=== PATIENT | female | born 1940 | race Caucasian/White ===

== ENCOUNTER 2017-01-15 21:48 | Inpatient (IN) | payer MEDICARE, OTHER ==
[~2017-01-15] VITALS: Ht 165.1 cm; Wt 101.1 kg
[~2017-01-15 21:48] MED LIST: ALBU90AE IH; ASPI-973 PO; CALC-72 PO; CHOL400T PO; FLAX1CAP4 PO; GUAI400T57 PO; IPRA3AMP IH; LORA10CA PO; MULT1CAP33 PO; OXYC5TAB72 PO; POLY17PO6 PO; TELM20TA PO
[2017-01-15 22:18] VITALS: BP 157/82; PULSE 96; RESP 24; O2SAT 93
--- NOTE | 2017-01-15 22:58 | ED.REPORT ---
HPI-Abd Pain F 40 and Over Date of Service Jan 15, 2017 ED Provider: Alfred Canales MD Patient is a 76 year old female with a history of COPD, WPW syndrome, hypertension, hernia, cholecystectomy and hemorrhoid presenting to the ED c/o abdominal pain onset 5 hours ago. She describes a sensation of gas in her lower abdomen and feels bloated. This is accompanied by nausea but she denies vomiting , diarrhea or dysuria. She is having normal bowel movements and used Mylanta without relief. The patient denies history of appendectomy. Nursing Notes Stated Complaint: STOMACH PAIN Chief Complaint: Female Abdominal Pain Nursing Notes Reviewed: Yes Allergies: Coded Allergies: diazepam (Verified Adverse Reaction, Severe, 01/16/17) "It reversed on me. Instead of making me calm, it made me hyper." amoxicillin (Verified Adverse Reaction, Intermediate, 01/16/17) "It was like I had the flu." clavulanic acid (Verified Adverse Reaction, Intermediate, 01/16/17) "It was like I had the flu. I had once, and they thought I had the flu. Then I took it again, and it happened again." Scheduled Aspirin (Aspirin) 81 Mg Tablet 81 MG PO At dinner Calcium Carbonate/Vitamin D3 (Calcium 500 + Vit D 200 Tablet) 1 Each Tablet 1 EACH PO BID Cholecalciferol (Vitamin D3) (Vitamin D3) 400 Unit Tablet 800 UNIT PO DAILY Guaifenesin (Guaifenesin) 400 Mg Tablet 400 MG PO BID Ipratropium/Albuterol Sulfate (Iprat-Albut 0.5-3(2.5) mg/3 mL Inhalant Soln) 3 Ml Ampul.neb 3 ML IH Q6 Loratadine (Claritin) 10 Mg Capsule 10 MG PO DAILY Multivitamin (Multivitamins) 1 Each Capsule 1 EACH PO DAILY Naproxen Sodium (Aleve) 220 Mg Capsule 220 MG PO BID Soy Isofla/Blk Cohosh/Mag Bark (Estroven 155 mg Capsule) 155 Mg Capsule 155 MG PO HS Telmisartan (Micardis) 20 Mg Tablet 20 MG PO DAILY Scheduled PRN Albuterol Sulfate (Proair Respiclick) 90 Mcg Aer.pow.ba 2 PUFFS IH q4 hours PRN PRN For Shortness of Breath Polyethylene Glycol 3350 (Miralax) 17 Gm Powd.pack 17 GM PO DAILY PRN PRN For Constipation General Time Seen by MD: 22:46 Chief Complaint Abdominal pain Hx Obtained From: Patient Arrived By: Walk-in Sudden in Onset?: No Onset Occurred: 5 - 8 hours ago Symptom Duration: Since onset Location: : Abdomen lower Recent Healthcare: No recent hospitalization, Recent doctor visit Similar Sx Previous: No Risk Factors )( AAA Risk Stratification Hypertension Risk factors reviewed Past Medical History Past Medical History Chronic Obstructive Pulmonary Disease Morena Parkinson White Syndrome Reports: COPD Past Surgical History Pilonidal Cyst Removal Reports: Cholecystectomy Smoking History Former Smoker Social History Other Social History: Good social support Ambulatory Status Independent Review of Systems bloating GI: Reports: Abdominal pain, Nausea, Denies: Constipation, Diarrhea, Vomiting Female: Denies: Dysuria Complete sys rev & neg: except as marked. Physical Exam Vital Signs Vital Signs (First) Date Time Temp Pulse Resp B/P Pulse Ox O2 Delivery O2 Flow Rate FiO2 01/15/17 22:18 37.1 96 24 157/82 93 Room Air Initial VS: Reviewed, Vital signs normal General/Constitutional: Awake, Alert Appearance / Presentation: Positive: Obese exam limited by obesity Respiratory / Chest: Atraumatic, Breath sounds NL, Breath sounds = bilat, No respiratory distress Cardiovascular: Heart rate NL, Regular rhythm, Heart sounds NL Abdomen: Atraumatic, Soft diffuse abdominal tenderness, not well localized palpable periumbilical hernia Back: Atraumatic, Full range of motion, No CVA tenderness Head / Eyes: Atraumatic, Normocephalic, PERRL, EOMI ENT: Atraumatic, Airway patent, Mucous membranes moist Skin: Atraumatic, Color NL, No rash, Warm, Dry Lower Extremity / Pelvis / MS: Atraumatic, Full range of motion, No edema Interpretation & Diagnostics Lab Results Interpretation Result Diagram: 01/15/17 2255 01/15/17 2255 Test 01/15/17 21:55 01/15/17 22:53 01/15/17 22:55 01/16/17 00:00 C-Reactive Protein 1.7mg/dL (0.0-0.5) Urine Color Yellow (YELLOW) Urine Appearance Hazy (CLEAR,HAZY) Urine pH 6.0 (5.0-8.0) Urine Specific [place] 1.025 (1.003-1.035) Urine Protein Negativemg/dL (NEG,TRACE) Urine Glucose (UA) Negativemg/dL (NEGATIVE) Urine Ketones 40mg/dL (NEGATIVE) Urine Occult Blood Moderate (NEGATIVE) Urine Nitrite Negative (NEGATIVE) Urine Bilirubin Negative (NEGATIVE) Urine Urobilinogen Normalmg/dL (NORMAL) Urine Leukocyte Esterase Trace (NEGATIVE) Urine RBC 3-10/hpf (0-2) Urine WBC 6-10/hpf (0-5) Urine Epithelial Cells Few/hpf (NONE-MOD) Urine Crystals None seen (NONE SEEN) Urine Bacteria Few/hpf (NONE-FEW) Urine Hyaline Casts None/lpf (NONE) Urine Granular Casts None seen (NONE SEEN) Urine Waxy Casts None seen (NONE SEEN) Urine Red Blood Cell Casts None seen (NONE SEEN) Urine White Blood Cell Casts None seen (NONE SEEN) Urine Mucus Present (None Seen) Urine Trichomonas None seen (NONE SEEN) Urine Yeast None (NONE SEEN) Urinalysis Comment None Urine Culture Reflexed Indicated Hold Urine Received (Received) White Blood Count 16.9th/mm3 (3.8-10.1) Red Blood Count 5.14mil/mm3 (3.90-5.20) Hemoglobin 14.4g/dL (12.0-15.6) Hematocrit 43.1% (35.0-46.0) Mean Corpuscular Volume 83.9fL (81-100) Mean Corpuscular Hemoglobin 28.0pg (27.0-35.0) Mean Corpuscular Hemoglobin Concent 33.4% (32.0-37.0) Red Cell Distribution Width 14.0% (12.3-15.4) Platelet Count 229bil/L (150-400) Neutrophils (%) (Auto) 87.1% (40-74) Lymphocytes (%) (Auto) 6.7% (14-46) Monocytes (%) (Auto) 5.3% (4-12) Eosinophils (%) (Auto) 0.5% (0-5) Basophils (%) (Auto) 0.2% (0-3) Hold Purple Top Tube Received (Received) Prothrombin Time 10.5sec (8.1-12.5) Prothromb Time International Ratio 0.98ratio Hold Blue Top Tube Received (Received) Sodium Level 135mEq/L (134-144) Potassium Level 4.1mEq/L (3.5-5.2) Chloride Level 96mEq/L (97-108) Carbon Dioxide Level 24mmol/L (18-29) Blood Urea Nitrogen 21mg/dL (8-27) Creatinine 0.77mg/dL (0.57-1.00) Estimat Glomerular Filtration Rate 104mL/min (>59) Glucose Level 157mg/dL (60-99) Calcium Level 9.5mg/dL (8.5-10.1) Magnesium Level 2.0mg/dL (1.6-2.6) Total Bilirubin 0.5mg/dL (0.0-1.2) Aspartate Amino Transf (AST/SGOT) 16U/L (0-50) Alanine Aminotransferase (ALT/SGPT) 12U/L (0-32) Alkaline Phosphatase 61U/L (25-165) Total Protein 7.5g/dL (6.4-8.4) Albumin 4.4g/dL (3.4-5.0) Lipase 17U/L (13-60) Hold Red Top Tube Received (Received) Hold Gallagher Top Tube Received (Received) Hold Arza Top Tube Received (Received) Lab Results Interpretation: Laboratory data white blood count, mildly elevated nonfasting glucose ECG Interpretation ECG Interpretation: Sinus rhythm with a rate of 91 Probable left atrial enlargement Low voltage, precordial leads Time: 23:34 Interpreted by: ED physician CT Abd / Pelvis Interpretation IMPRESSION: Acute non-perforated appendicitis Study type: Abdominal CT IV contrast Interpretation / Wet Read by: Interpret - Radiologist Re-Eval/Medical Decision Med Decision/Clinical Course 76-year-old female with some mild comorbidities (hypertension, obesity) has an acute appendicitis. She will be admitted to the hospitalist service with Win Gaffney, surgeon, consulting. Re-Evaluation/Progress #1: Time of Eval: 23:34 Re-Evaluation/Progress Note: Pt rechecked, who is resting. Lab results are discussed. Re-Evaluation/Progress #2: Time of Eval: 00:34 Re-Evaluation/Progress Note: Pt rechecked, who is resting comfortably. The diagnosis and plan for admission with surgery are discussed. The pt understands and agrees with the plan. All questions are addressed at this time. Consultation #1: Referral / Consult Name: Win Gaffney MD Consulted With: Surgeon Call Returned at: 00:42 Mechanic Foreman: Agrees with eval, Agrees with plan, Accepts admit Note: Spoke with Dr. Gaffney, surgeon, regarding pt's case. Dr. Gaffney agrees with the evaluation and agrees to admit the pt. He also requests a hospitalist consultation. Consultation #2: Referral / Consult Name: Shai Aburto MD Consulted With: Hospitalist Call Returned at: 00:51 Mechanic Foreman: Agrees with eval, Agrees with plan Note: Consulted with Dr. Aburto, hospitalist, regarding pt's case. Dr. Aburto agrees with the evaluation and plan. Counseled Regarding: Diagnosis, Lab results, Need for admission Discharge & Departure Primary Impression: Acute appendicitis Acute appendicitis type: unspecified acute appendicitis type Qualified Code: K35.80 - Unspecified acute appendicitis Disposition: ADMITTED TO HOSPITAL Discharge Condition All VS Reviewed: Yes Condition: Stable Referrals: Wilver Whelan MD (PCP) Scribe Attestation Portions of this note were transcribed by Hafsa Rodriguez & Radhika Keller. I, Dr. Canales personally performed the history, physical exam and medical decision-making; I reviewed and confirmed the accuracy of the information in the transcribed note. Signed by: Hafsa Rodriguez & Garo Sandoval, 01/16/2017 and 0111. copies to: Wilver Whelan MD, Howard L MD Jan 15, 2017 22:58 Hafsa Rodriguez Jan 15, 2017 23:07 RADHIKA KELLER Jan 16, 2017 00:55
[2017-01-15 23:03] LABS: BASOPHILS % (AUTO) 0.2 % (0-3); EOSINOPHILS % (AUTO) 0.5 % (0-5); MONOCYTES % (AUTO) 5.3 % (4-12); Mean Corpuscular Volume 83.9 fL (81-100); NEUTROPHILS % (AUTO) 87.1 % (40-74); Platelet Count 229 bil/L (150-400)
[2017-01-15] MEDS ORDERED: 0.9% Sodium Chloride 1,000 ML IV ONE (23:03)
[2017-01-15] MEDS ORDERED: Ondansetron 2 mg/mL 2 mL Inj IVPUSH PRN (23:05)
[2017-01-15 23:23] LABS: COLOR,URINE YELLOW (YELLOW)
[2017-01-15 23:24] LABS: APPEARANCE,URINE HAZY (CLEAR,HAZY); OCCULT BLOOD,URINE MODERATE (NEGATIVE); UROBILINOGEN,URINE NORMAL (NORMAL)
[2017-01-15] MEDS: HYDROmorphone 0.5 mg/0.5 mL iSecure Syringe IVPUSH PRN (23:25)
[2017-01-16] VITALS (20 sets, daily range): BP systolic 102–146; BP diastolic 57–81; PULSE 53–98; RESP 8–22; O2SAT 90–97
[2017-01-16] MEDS ORDERED: Cefotetan Inj 2,000 MG in IV Premix 1 EACH IV ONE (00:50)
[2017-01-16] MEDS ORDERED: Alum-Mag Hydrox-Simeth 30 mL Suspension PO PRN (01:00)
[2017-01-16 01:07] LABS: INR 0.98 ratio
[2017-01-16] MEDS: HYDROmorphone 0.5 mg/0.5 mL iSecure Syringe IVPUSH PRN ×4 (01:26→15:13)
[2017-01-16] MEDS ORDERED: POLY17PO6 PO (02:28)
[2017-01-16] MEDS ORDERED: NAPR220C11 PO (02:29)
[2017-01-16] MEDS ORDERED: SOY155CA PO (02:30)
[2017-01-16] MEDS: 0.9% Sodium Chloride 1,000 ML IV SCH ×2 (02:54→15:14)
[2017-01-16] MEDS: Ondansetron 2 mg/mL 2 mL Inj IVPUSH PRN ×2 (02:54→11:53)
[2017-01-16] MEDS: Albuterol-Ipratropium 3 mL Inhalation Solution NEB SCH ×4 (03:00→20:03)
--- NOTE | 2017-01-16 03:15 | PCM.HPMED ---
Subjective Date of Service Jan 16, 2017 Primary Provider: Admitting Physician: Primary Care Physician: Wilver Whelan MD Attending Physician: Chief Complaint: Abdominal pain. 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 She describes a sensation of gas in her lower abdomen and feels bloated , She reports the pain as 8/10, diffuse abdominal pain but more prominent in the Right lower quadrant. She reports the pain would start in her upper abdomen and squeeze towards her right lower quadrant and wrap around the back and was a "bloating fullness type pain" in character. She reports that nothing alleviates her pain aside from pain medication and nothing particularly aggravates it. She reports increased nausea, belching, and decreased appetite associated with the onset of abdominal pain around 4 or 5 pm last evening. She reports multiple large bowel movements throughout the day. She denies fever, vomiting, chest pain, shortness of breath, syncope, dysuria, constipation diarrhea. Upon arrival to the emergency department patient's vitals are as follows; Temperature 37.1C, pulse 96, respiratory rate 24, blood pressure 157/82, pulse ox 93% on room air. Significant Laboratory studies include white count of 16.9 with a neutrophil percentage of 87. CRP of 1.7, lipase 17. Normal liver studies, normal metabolic panel, hemoglobin of 14.4. Imaging studies include CT abdomen, currently not uploaded in the computer however reviewed in the emergency department showed changes associated with likely acute appendicitis. Urine analysis shows trace leukocyte esterase, 6-10 white blood cells, 3-10 red blood cells, few epithelial cells and a few bacteria. 40 ketones. Urine culture pending. In the emergency department patient received cefotetan and Dilaudid. Review of Systems: A comprehensive review of systems was conducted with the patient and found to be negative except as above in the History of Present Illness. bloating GI: Reports: Abdominal pain, Nausea, Denies: Constipation, Diarrhea, Vomiting Female: Denies: Dysuria Complete sys rev & neg: except as marked. Allergies Coded Allergies: diazepam (Verified Adverse Reaction, Severe, 01/16/17) "It reversed on me. Instead of making me calm, it made me hyper." amoxicillin (Verified Adverse Reaction, Intermediate, 01/16/17) "It was like I had the flu." clavulanic acid (Verified Adverse Reaction, Intermediate, 01/16/17) "It was like I had the flu. I had once, and they thought I had the flu. Then I took it again, and it happened again." Home Medications Aspirin (Aspirin) 81 Mg Tablet 81 MG PO DAILY Calcium Carbonate/Vitamin D3 (Calcium 500 + Vit D 200 Tablet) 1 Each Tablet 1 EACH PO BID Cholecalciferol (Vitamin D3) (Vitamin D3) 400 Unit Tablet 800 UNIT PO DAILY Flaxseed/Omega3,6,9/Fatty Acid (Flax Seed Oil 1,300 mg Softgel) 1 Each Capsule 1 EACH PO DAILY Guaifenesin (Guaifenesin) 400 Mg Tablet 400 MG PO BID Ipratropium/Albuterol Sulfate (Iprat-Albut 0.5-3(2.5) mg/3 mL Inhalant Soln) 3 Ml Ampul.neb 3 ML IH Q6 Loratadine (Claritin) 10 Mg Capsule 10 MG PO DAILY Multivitamin (Multivitamins) 1 Each Capsule 1 EACH PO DAILY Polyethylene Glycol 3350 (Miralax) 17 Gm Powd.pack 17 GM PO DAILY Telmisartan (Micardis) 20 Mg Tablet 20 MG PO DAILY Scheduled PRN Albuterol Sulfate (Proair Respiclick) 90 Mcg Aer.pow.ba 2 PUFFS IH q4 hours PRN PRN For Shortness of Breath oxyCODONE (oxyCODONE) 5 Mg Tablet 5 MG PO Q4H PRN PRN For Moderate Pain PMH Chronic Obstructive Pulmonary Disease Morena Parkinson White Syndrome Reports: COPD Surgical History Pilonidal Cyst Removal Reports: Cholecystectomy Family History Mother from metastatic Breast cancer. Social History Hx Alcohol Use: Yes (about 5 yrs ago) Hx Substance Use: No Smoking Status: Former Smoker Exam Vital Signs Vital Sign - Last Date Time Temp Pulse Resp B/P Pulse Ox O2 Delivery O2 Flow Rate FiO2 01/15/17 22:18 37.1 96 24 157/82 93 Room Air Intake and Output 01/15/17 01/15/17 01/16/17 Cumulative From/Thru 15:00 23:00 07:00 01/15/17 22:18 - 01/15/17 23:30 Intake Total 1000 ml 1000 ml Balance 1000 ml 1000 ml Intake IV Total 1000 ml 1000 ml Exam General: Elderly lady lying in bed currently in no acute distress. Well- developed and obese. well-nourished, appropriately interactive HEENT: Normocephalic, atraumatic. External ears without defect. Pupils equal, round, and reactive to light and accommodation. Anicteric sclerae, moist conjunctivae, and no lid lag. Oropharynx free of erythema and cobble stoning with moist mucosa. Some various missing teeth. No oral thrush no urinary erythema. Neck: Supple with full range of motion. No jugular venous distension. No bruits. No lymphadenopathy or thyromegaly. Cardiovascular: Regular rate and rhythm with no murmurs, rubs, or gallops appreciated Pulmonary: Clear to auscultation bilaterally with no crackles, wheezes, or rhonchi. Normal respiratory effort with no use of accessory muscles. Abdomen: Bowel tones present. Soft and obese. Relatively nontender to palpation however this exam was done after Dilaudid was administered in the emergency department, although patient does note some fullness in the right lower quadrant upon mild abdominal palpation. No hepatosplenomegaly or masses appreciated. Extremities: No clubbing, cyanosis, edema, or lymphadenopathy appreciated. Skin: Normal temperature, turgor, and texture; no rash, ulcers, or subcutaneous nodules appreciated. Neurological: Cranial nerves grossly intact. Normal muscle strength, tone, and bulk. Reflexes, coordination, and sensory function within normal limits. No known gait impairment. Psychiatric: Normal mood and affect. Alert and oriented to person, place, and time. Lab and Diagnostics Result Diagram: 01/15/17225401/15/172254 Assessment & Plan Mrs. Fariha Staton is a very pleasant and anxious 76-year-old female with a history of COPD, hypertension, WPW, previous abdominal hernia repair with mesh, who presents with 5 hours of abdominal tenderness, increased nausea and belching with an elevated white count and evidence of acute appendicitis on CT abdomen. She has been scheduled for likely appendectomy in the morning. 1. Acute appendicitis, present on admission. Active. - CT abdomen shows signs acute appendicitis. Current report is not uploaded to the system, official read not available. - White blood cell count 16.9, neutrophils 87.1%. CRP 1.7. Lipase negative at 17. - Blood cx ordered. - Dr. Gaffney with surgery is planning on appendectomy in the morning. - Received cefotetan 2 g one time. - Nothing by mouth. - IV Dilaudid when necessary pain. - IV NS 100 mL per hour. - Zofran when necessary nausea. 2. COPD, present admission. Active. - On home O2 at night 2 L nasal cannula. - Duo nebs every 6 hours scheduled. - Albuterol when necessary for shortness of breath. 3. Rosales Parkinson's white syndrome, present on admission. Active. - AKA atrioventricular reciprocating tachycardia. - Remote telemetry ordered. 4. Chronic hypertension, present on admission. Stable. - Patient reports this is mostly associated with anxiety. - Plan to continue home telmisartan following surgery. Note this is patient's home medication and is not available at the hospital. - Acetaminophen for mild pain when necessary. Bowel regimen Senna and MiraLAX scheduled and PRN. Zofran when necessary for nausea and vomiting. SubQ heparin held for now. SCDs in place. High-risk medications: IV Dilaudid. Social: Of note patient's is suffering from dementia and seems to be a focal point of her life. 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 They currently reside in [place] at a [address] and over home together. They have good family support no current pets. Disposition: Likely here for > 2 midnights. Dependent upon surgical intervention and status following surgery. Will be discharged to home when medically stable. Pain Evaluation: Adequate Pain Control Resuscitation Status: CPR: Attempt Resuscitation Attending Statement The patient was seen and examined together with Dr. Montenegro on 01/16 and I agree with the history, exam and plan as outlined in the note above. RODNEY MONTENEGRO DO Jan 16, 2017 01:23 Shai Aburto MD Jan 16, 2017 06:44
--- NOTE | 2017-01-16 03:16 | NUR ---
ADMIT NOTE Pt arrived to [facility] 3023 approx 0130. Pt alert and oriented. Pt is generally anxious, and is always in regards to medical care per pt. Pt able to scoot self onto bed from stretcher. Pt placed on remote telemetry. VS obtained. Pt placed on 2L via nasal cannula per home regimen. Pt has no c/o pain at this time. Pt is NPO. Saline locked flushed, IVF administered. Pt c/o nausea, dose of IV zofran given. Pts son in room overnight. Pt and son aware of upcoming surgery planned for later this am. Continue to monitor. Call light in reach. Intentional rounding.
--- NOTE | 2017-01-16 05:35 | CONS ---
[address] [address] CONSULTATION REPORT PATIENT: OZIEL SNEED : 1940 MR#: [id number] ADMIT: 01/16/2017 JOB ID: [id number] DATE OF SERVICE: 01/16/2017 CHIEF COMPLAINT: Appendicitis on CT scan. HISTORY OF PRESENT ILLNESS: The patient is a 76-year-old female, who presented to the emergency department last night due to onset of abdominal discomfort. The patient states that this started after 5 p.m. yesterday and it felt like gas pains both in the upper and lower abdomen. Gradually it has intensified in the right lower quadrant. The patient had a normal bowel movement yesterday. She reported having some nausea, but no vomiting. She denies any fevers. The pain is described to be gas pain like. The patient was evaluated in the emergency department and was found to have an elevated white blood count of 16.9, and a CT scan of the abdomen and pelvis, which suggests acute non-perforated appendicitis. The patient most recently in July 2015 underwent an open incisional hernia repair with mesh by Dr. Blanton. The incisional hernia was due to an open cholecystectomy many years prior. On the CT scan tonight there is noted to be recurrence of ventral hernia. PAST MEDICAL HISTORY: Open incisional hernia repair with mesh by Dr. Blanton in July 2015, open cholecystectomy in [place] many years prior, pilonidal cyst surgery, tonsillectomy, COPD, WPW syndrome, and diabetes. MEDICATIONS AT HOME: Include albuterol, baby aspirin, guaifenesin, Claritin, vitamins, Naprosyn, Micardis. ALLERGIES: 1. AUGMENTIN. 2. VALIUM. SOCIAL HISTORY: Patient currently lives in [place]. She is . She used to smoke. She has a son and a daughter. FAMILY HISTORY: Positive for breast cancer. REVIEW OF SYSTEMS: Positive for the abdominal discomfort, nausea. Otherwise negative. All other systems reviewed were negative. PHYSICAL EXAMINATION: The patient is currently in the hospital bed, in no acute distress. Her BMI is 35.7, temperature is 36.6, blood pressure 114/73, pulse is 91, respirations 18, saturation 93% on nasal prongs of oxygen. Head is normocephalic, atraumatic. The patient does wear glasses. Neck is obese. Lungs are clear. There is no wheezing. Heart is regular rate. Abdomen is obese. There is focal tenderness to palpation in the right lower quadrant. The patient does have a well-healed upper midline scar, and she is noted to have a recurrence of ventral hernia by the umbilicus. The remainder of the abdomen is benign. Extremities show no clubbing and no cyanosis. Neurologically, patient is arousable, and conversant and answers questions appropriately. DIAGNOSTIC STUDIES: Laboratory examination last night showed a white blood count of 16.9, hematocrit 43.1, platelet count is 229. Sodium was 135, potassium 4.1, creatinine 0.77. Lipase of 17. Total bilirubin 0.5. Her INR is 0.98. A CT scan preliminary report shows a ventral hernia containing small bowel. No proximal bowel obstruction, acute non-perforated appendicitis. ASSESSMENT: This is a 76-year-old female with 1-day history of abdominal pain, with a CT scan finding showing acute nonperforated appendicitis. The patient has been started on IV antibiotics, and she has is n.p.o. at this time. We will take the patient to the operating room today for laparoscopic appendectomy, possible open. Given her previous history of open cholecystectomy and most recently the open ventral hernia repair with mesh in 2015, I suspect that a laparoscopic approach will be very difficult. I think the chance of an open appendectomy is very likely. This was explained to the patient and patient understands and wishes to proceed. YARELI
--- NOTE | 2017-01-16 09:35 | DRSVH ---
PROCEDURE: CT ABDOMEN AND PELVIS WITH CONTRAST ([id number]) INDICATIONS: abd pain, elev wbc TECHNIQUE: After the administration of intravenous contrast, 5 mm thick sections acquired from the diaphragm to the symphysis. 5 mm coronal and sagittal reformats were acquired. For radiation dose reduction, the following was used: automated exposure control, adjustment of mA and/or kV according to patient siz e. COMPARISON: None. FINDINGS: Image quality: Excellent. ABDOMEN: Lung bases: Lung bases are clear. Heart size is normal. Solid organs: Multiple hypodense lesions seen in the spleen, some of which may represent small cysts although technically indeterminate due to small size. There is minimal intrahepatic biliary ductal pr ominence possibly due to prior cholecystectomy. Otherwise liver and spleen are normal in size and enh ancement. Gallbladder absent. Biliary system is non dilated. Pancreas enhances normally. No adren al nodules. Kidneys demonstrate normal size and enhancement, without hydronephrosis. Subcentimeter h ypodense lesions in the left and right renal cortex too small to characterize. Peritoneum and bowel: Bowel loops demonstrate normal wall thickness and caliber. No free fluid or a ir. The appendix is enlarged and there is periappendiceal fat stranding. The appendiceal diameter me asures approximately 12 mm. Minimal adjacent fluid. There is colonic diverticulosis. No definite colo tres diverticulitis. Rectum is decompressed otherwise unremarkable. Nodes and vessels: No retroperitoneal or mesenteric adenopathy by size criteria. Aorta and inferior vena cava are normal in size. Miscellaneous: Midline bowel loop containing ventral hernia PELVIS: Genitourinary: Bladder wall thickness is normal. Miscellaneous: No inguinal hernias or adenopathy. Bones: No suspicious bony lesions. No vertebral body compression fractures. IMPRESSION: Acute appendicitis. No free air or appendicolith seen. No abscess identified. Midline ventral bowel containing hernia without current evidence of bowel obstruction. Nonspecific, multiple hepatic hypodense lesions as detailed above. Concordant with preliminary interpretation Dictated by: Ruddy Melendez M.D. on 01/16/2017 at 9:23 Approved by: Ruddy Melendez M.D. on 01/16/2017 at 9:33
[2017-01-16] MEDS ORDERED: Lactated Ringer's 1,000 ML IV ONE (09:39)
[2017-01-16] MEDS ORDERED: Bupivacaine-MPF 0.5% W/EPI 30 mL Inj INFILTRATE ONE (10:05)
[2017-01-16] MEDS ORDERED: Lactated Ringer's 1,000 ML IV SCH (10:09)
[2017-01-16] MEDS ORDERED: Lactated Ringer's 500 ML IV PRN (10:09)
[2017-01-16] MEDS ORDERED: fentaNYL-PF 50 mCg/mL 2 mL Inj IVPUSH PRN (10:10)
[2017-01-16] MEDS ORDERED: EPHEDrine Sulfate 50 mg/mL Inj IVPUSH PRN (10:10)
[2017-01-16] MEDS ORDERED: Atropine 0.4 mg/mL Inj IVPUSH PRN (10:10)
[2017-01-16] MEDS ORDERED: Phenylephrine 10,000 mCg/mL Inj IVPUSH PRN (10:10)
[2017-01-16] MEDS ORDERED: Labetalol 5 mg/mL 4 mL Inj IV PRN (10:10)
[2017-01-16] MEDS ORDERED: Ondansetron 2 mg/mL 2 mL Inj IVPUSH PRN (10:10)
[2017-01-16] MEDS ORDERED: MetoCLOpramide 5 mg/mL 2 mL Inj IVPUSH PRN (10:10)
--- NOTE | 2017-01-16 10:14 | NUR ---
Social Work-attempted assessment: Data:EMR Reviewed. Pt is a 76 y/o female who was admitted on 01/16/17 for acute appendicitis per H&P. Pt's insurance is [employer] and PCP is Wilver Whelan MD. EMR Reviewed. SW attempted meet with pt to complete assessment, but pt just taken to OR for surgery. SW to follow up post surgery to complete assessment. SW will continue to follow. Assessment:Pt who is independent at baseline. Plan:SW to follow up tomorrow to complete assessment. SW will continue to follow. LOIS Salazar
--- NOTE | 2017-01-16 10:14 | PCM.HPANE ---
Patient Data Surgeon Admitting Provider:Shai Aburto MD Attending Provider:Shai Aburto MD Primary Care Physician:Wilver Whelan MD Other Provider: Reason for Visit Acute Appendicitis Ht/WT & BMI Height (Feet): 5 Height (Inches): 5.00 Weight (Kilograms): 97.300 Body Mass Index 35.74 Allergies Coded Allergies: diazepam (Verified Adverse Reaction, Severe, 01/16/17) "It reversed on me. Instead of making me calm, it made me hyper." amoxicillin (Verified Adverse Reaction, Intermediate, 01/16/17) "It was like I had the flu." clavulanic acid (Verified Adverse Reaction, Intermediate, 01/16/17) "It was like I had the flu. I had once, and they thought I had the flu. Then I took it again, and it happened again." Past Anesthesia History Anesthesia History: Denies:: Anesthesia Reactions Diabetes History Hx Diabetes?: Yes Type of Diabetes: Diet Controlled Glycemic Control: Diet Controlled Current Bedside Blood Glucose: 141 MRSA MRSA: No Medications Reported Medications Soy Isofla/Blk Cohosh/Mag Bark (Estroven 155 mg Capsule)155 Mg [id number] Mg PO HS 01/16/17 Naproxen Sodium (Aleve)220 Mg Czkoqzm632 Mg PO BID 01/16/17 Polyethylene Glycol 3350 (Miralax)17 Gm Powd.pack17 Gm PO DAILY PRN For Constipation 01/16/17 Telmisartan (Micardis)20 Mg Mcpwib05 Mg PO DAILY 07/08/15 Loratadine (Claritin)10 Mg Hrfswxd19 Mg PO DAILY Ref 0 07/08/15 Ipratropium/Albuterol Sulfate (Iprat-Albut 0.5-3(2.5) mg/3 mL Inhalant Soln)3 Ml Ampul.neb3 Ml IH Q6 Ref 0 07/08/15 Multivitamin (Multivitamins)1 Each Capsule1 Each PO DAILY 07/08/15 Calcium Carbonate/Vitamin D3 (Calcium 500 + Vit D 200 Tablet)1 Each Tablet1 Each PO BID 07/08/15 Guaifenesin 400 Mg Ruuszx153 Mg PO BID 30 Days 07/08/15 Aspirin 81 Mg Rwdems61 Mg PO At dinner Ref 0 07/08/15 Albuterol Sulfate (Proair Respiclick)90 Mcg Aer.pow.ba2 Puffs IH q4 hours PRN For Shortness of Breath 07/08/15 Cholecalciferol (Vitamin D3) (Vitamin D3)400 Unit Rrufws649 Unit PO DAILY 07/08/15 Discontinued Reported Medications Flaxseed/Omega3,6,9/Fatty Acid (Flax Seed Oil 1,300 mg Softgel)1 Each Capsule1 Each PO DAILY 07/08/15 Discontinued Scripts Polyethylene Glycol 3350 (Miralax)17 Gm Powd.pack17 Gm PO DAILY #30 Prov:Santana Blanton MD 07/10/15 oxyCODONE 5 Mg Tablet5 Mg PO Q4H PRN For Moderate Pain #30 TABLET Prov:Santana Blanton MD 07/10/15 History History of ENT Problems?: Yes HEENT History: Positive for:: Cataracts (Right eye) Sinus Problem Denies:: Dysphagia Glaucoma Denture Type: None Teeth Condition: Missing Teeth Hx of Heart Problems?: Yes Cardiovascular History: Positive for:: Hypertension Irregular Heartbeat (WPW syndrome diagnosed 1984) Denies:: Cardiac Surgery Chest Pain Congestive Heart Failure Edema Heart Murmur Pacemaker Thrombophlebitis Other History/Comments Rare palpitations. No CP. She exercises on exercise bike without CP, dizziness , or SOB Hx of Respiratory Problem?: Yes Respiratory History: Positive for:: COPD Dyspnea Emphysema Pneumonia ("Years ago.") Denies:: Asthma Chest Surgery Hemoptysis Tuberculosis Other History/Comment 2 L home O2 at night. Upon entering the OR she had O2 sat of 84% on RA She received albuterol immediately pre-op No new coughs. Breathing is at baseline Hx Neurologic Problems?: No Neurological History: Positive for:: Dizziness (Vertigo x 1, Light-headed w/ WPW) Denies:: Alzheimer's Disease CVA Dementia Headaches Parkinson's Disease Seizures Hx of GI Problems?: Yes Hx of Problems?: Yes Genitourinary History: Positive for:: Urinary Tract Infection Denies:: HX of Hemodialysis Kidney Stones HX of Peritoneal Dialysis: No Female Hx: Denies:: Currently Endometriosis Pelvic Inflammatory Problems with Breasts? Hx Musculoskeletal Problems?: Yes Musculoskeletal History: Denies:: Back Injury Joint Replacement Musculoskeletal Trauma Hx of Psycho/Social Problems?: No Psycho Social History: Denies:: Bipolar Disorder Hx Depression Suicide Attempt Hx Surgeries?: Yes (listed above) Other History: Positive for:: Hospitalization (spinal cyst removal , cholecystectomy , hernia repair w/ mesh ) Denies:: Cancer Thyroid Disease History Blood Transfusions: Positive for:: Accept Blood Products? Denies:: Blood Transfuse Reaction Blood Transfusions Hx Diabetes: YesBedside Blood Glucose: 141 Hx Alcohol Use: Yes (about 5 yrs ago)Hx Substance Use: No Smoking Status: Former Smoker Have You Smoked inLast 12 mo: No Stop/Bang Treated for Sleep Apnea?: No Do You Have a CPAP Machine?: No S-Snoring: Do You Snore Loudly: No T-Tired: feel tired, fatigued: No O-Obsered: Observed not breath: No P-Blood Pressure: treated: Yes B- Body Mass Index > 35 kg/m2: Yes A- Age over 50: Yes N- Neck Large Circumference: Yes G- Gender Male: No PIERRE Total Score: 4 Risk Assessment Category Category 1A: Patient has history of documented sleep apnea, and HAS NOT received any narcotic, sedative or anesthesia administration during this stay. Category 1B: Patient has history of documented sleep apnea, and HAS received any narcotic , sedative or anesthesia administration during this stay Category 2: Patient has SUSPECTED Obstructive Sleep Apnea, and HAS received any narcotic , sedative or anesthesia administration during this stay. Category 3: Patient has SUSPECTED Obstructive Sleep Apnea and HAS NOT received narcotic, sedative or anesthesia administration during this stay. Category 4: Outpatient in Procedural Areas with known sleep apnea or who screen positive for High Risk via the STOP/BANG questionnaire. Exam Exam Vital Signs Vital Signs Date Time Temp Pulse Resp B/P Pulse Ox O2 Delivery O2 Flow Rate FiO2 01/16/17 09:02 36.9 80 18 110/68 93 Nasal Cannula 2.00 01/16/17 08:57 71 01/16/17 08:30 79 18 95 Nasal Cannula 2.00 01/16/17 07:57 Supplement Oxygen 01/16/17 05:36 98 01/16/17 05:16 36.7 86 18 126/74 93 Nasal Cannula 2.00 01/16/17 03:10 Supplement Oxygen 01/16/17 03:01 88 18 93 Nasal Cannula 2.00 01/16/17 02:26 36.6 91 18 114/73 90 Nasal Cannula 2.00 General Appearance: Alert, Oriented X3 HEENT/AIRWAY: MP 2, Neck Movement (FROM), Other (poor dentition; missing multiple teeth) Lungs: Other (mild inspiratory wheezing) Heart: Exam Unremarkable, Regular Rate/Rhythm Meds/Labs/Diagnostics Admission Meds Current Medications Sodium Chloride 1,000 ml @ 0 mls/hr Q0M ONCE IV Last administered on 23:25; Start 01/15/17 at 23:03; Stop 01/15/17 at 23:05; Status DC Cefotetan Disodium/Dextrose 2000 mg/Premix 50 ml @ 100 mls/hr ONCE ONCE IV Last administered on 01/16/17 01:26; Start 01/16/17 at 00:50; Stop 01/16/17 at 01:19; Status DC Sodium Chloride (Normal Saline) 1,000 ml @ 100 mls/hr Q10H IV Last administered on 01/16/17 02:54; Start 01/16/17 at 02:30 Albuterol/ Ipratropium (DuoNEB Inh Soln) 3 ml Q6 NEB Last administered on 08:32; Start 01/16/17 at 02:30 Bedside Blood Glucose: 141 Labs Test 01/15/17 21:55 01/15/17 22:53 01/15/17 22:55 01/16/17 00:00 C-Reactive Protein 1.7mg/dL (0.0-0.5) Urine Color Yellow (YELLOW) Urine Appearance Hazy (CLEAR,HAZY) Urine pH 6.0 (5.0-8.0) Urine Specific [place] 1.025 (1.003-1.035) Urine Protein Negativemg/dL (NEG,TRACE) Urine Glucose (UA) Negativemg/dL (NEGATIVE) Urine Ketones 40mg/dL (NEGATIVE) Urine Occult Blood Moderate (NEGATIVE) Urine Nitrite Negative (NEGATIVE) Urine Bilirubin Negative (NEGATIVE) Urine Urobilinogen Normalmg/dL (NORMAL) Urine Leukocyte Esterase Trace (NEGATIVE) Urine RBC 3-10/hpf (0-2) Urine WBC 6-10/hpf (0-5) Urine Epithelial Cells Few/hpf (NONE-MOD) Urine Crystals None seen (NONE SEEN) Urine Bacteria Few/hpf (NONE-FEW) Urine Hyaline Casts None/lpf (NONE) Urine Granular Casts None seen (NONE SEEN) Urine Waxy Casts None seen (NONE SEEN) Urine Red Blood Cell Casts None seen (NONE SEEN) Urine White Blood Cell Casts None seen (NONE SEEN) Urine Mucus Present (None Seen) Urine Trichomonas None seen (NONE SEEN) Urine Yeast None (NONE SEEN) Urinalysis Comment None Urine Culture Reflexed Indicated Hold Urine Received (Received) White Blood Count 16.9th/mm3 (3.8-10.1) Red Blood Count 5.14mil/mm3 (3.90-5.20) Hemoglobin 14.4g/dL (12.0-15.6) Hematocrit 43.1% (35.0-46.0) Mean Corpuscular Volume 83.9fL (81-100) Mean Corpuscular Hemoglobin 28.0pg (27.0-35.0) Mean Corpuscular Hemoglobin Concent 33.4% (32.0-37.0) Red Cell Distribution Width 14.0% (12.3-15.4) Platelet Count 229bil/L (150-400) Neutrophils (%) (Auto) 87.1% (40-74) Lymphocytes (%) (Auto) 6.7% (14-46) Monocytes (%) (Auto) 5.3% (4-12) Eosinophils (%) (Auto) 0.5% (0-5) Basophils (%) (Auto) 0.2% (0-3) Hold Purple Top Tube Received (Received) Prothrombin Time 10.5sec (8.1-12.5) Prothromb Time International Ratio 0.98ratio Hold Blue Top Tube Received (Received) Sodium Level 135mEq/L (134-144) Potassium Level 4.1mEq/L (3.5-5.2) Chloride Level 96mEq/L (97-108) Carbon Dioxide Level 24mmol/L (18-29) Blood Urea Nitrogen 21mg/dL (8-27) Creatinine 0.77mg/dL (0.57-1.00) Estimat Glomerular Filtration Rate 104mL/min (>59) Glucose Level 157mg/dL (60-99) Calcium Level 9.5mg/dL (8.5-10.1) Magnesium Level 2.0mg/dL (1.6-2.6) Total Bilirubin 0.5mg/dL (0.0-1.2) Aspartate Amino Transf (AST/SGOT) 16U/L (0-50) Alanine Aminotransferase (ALT/SGPT) 12U/L (0-32) Alkaline Phosphatase 61U/L (25-165) Total Protein 7.5g/dL (6.4-8.4) Albumin 4.4g/dL (3.4-5.0) Lipase 17U/L (13-60) Hold Red Top Tube Received (Received) Hold [place] Top Tube Received (Received) Hold [place] Top Tube Received (Received) Plan Impression Patient chart reviewed, patient interviewed and anesthestic plan with risks, benefits, and alternatives discussed, and informed consent obtained. ASA Physical Status: ASA3 Severe Disease Anesthetic Plan: GA Bene/Risks/Altern/Consents: Yes HP Complete Prior to Induction: Yes Other Pt understands she is at increased risk for amara-op pulmonary and cardiac complications based on her history Marin Stephen MD Jan 16, 2017 10:14
[2017-01-16] MEDS: HYDROmorphone 1 mg/mL Inj IVPUSH PRN ×3 (11:10→11:26)
--- NOTE | 2017-01-16 11:21 | NUR ---
Surgery : Patient was brought to Surgery at 1000. Her consent was signed she is having no pain issues. Her IV was saline locked. Report was given to surgical nurse, patient is to be transferred to [facility] room 1011 after her surgery.
--- NOTE | 2017-01-16 12:15 | NUR ---
PostOp Pt comes from PACU to room [facility]. Transferred via slider board. Pain 6/10 ABD. Midline ADB with Telfa and ABD pad. ABD binder placed. A&OX4, Denies CP, SOB. C/O nausea slight. All sensation in tact. Vásquez placed and draining to gravity pale yellow urine. 2L NC baseline for pt at home. Family at bedside. Care continues
[2017-01-16] MEDS: oxyCODONE-Acetamin 5-325 mg Tablet PO PRN ×3 (12:35→21:35)
[2017-01-16] MEDS ORDERED: Phenylephrine/NS 100 mCg/mL 10 mL Syringe IVPUSH ONE (12:47)
[2017-01-16] MEDS ORDERED: Succinylcholine Chloride 20 mg/mL 5 mL Inj ONE (12:47)
[2017-01-16] MEDS ORDERED: Rocuronium 10 mg/mL 5 mL Inj ONE (12:47)
[2017-01-16] MEDS ORDERED: Neostigmine 1 mg/mL 10 mL Inj ONE (12:47)
[2017-01-16] MEDS ORDERED: EPHEDrine/NS 5 mg/mL 5 mL Syringe ONE (12:47)
[2017-01-16] MEDS ORDERED: Glycopyrrolate 0.2 MG/ML 1mL Inj ONE (12:47)
[2017-01-16] MEDS ORDERED: Propofol 10,000 mCg/mL 20 mL Inj ONE (12:47)
--- NOTE | 2017-01-16 12:48 | PCM.ANEP1 ---
Post Anesthesia PACU Phase 1 Assessment Vital Signs Vital Signs Date Time Temp Pulse Resp B/P Pulse Ox O2 Delivery O2 Flow Rate FiO2 01/16/17 11:55 79 18 127/65 92 Nasal Cannula 2 01/16/17 11:44 36.5 76 14 134/66 92 Nasal Cannula 2 01/16/17 11:34 74 8 102/64 90 Nasal Cannula 2 01/16/17 11:24 80 16 121/57 92 Nasal Cannula 2 01/16/17 11:18 79 12 130/61 91 Nasal Cannula 2 01/16/17 11:11 84 12 124/67 94 Nasal Cannula 2 01/16/17 11:01 36.8 77 12 129/64 96 Simple Mask 9 01/16/17 09:02 36.9 80 18 110/68 93 Nasal Cannula 2.00 01/16/17 08:57 71 01/16/17 08:30 79 18 95 Nasal Cannula 2.00 01/16/17 07:57 Supplement Oxygen 01/16/17 05:36 98 01/16/17 05:16 36.7 86 18 126/74 93 Nasal Cannula 2.00 Anesthetic Administered: GA Level of Alertness: Awake, talking SONI's with Equal Strength: Yes Pain: No Pain Scale Score: 6 Nausea or Vomiting: No CV Function & Hydration Stable: Yes Airway Device: Endotrachial Tube Oxygen Delivery: Simple Mask Lungs: Other (mild inspiratory wheezing) PACU Phase 2 Assessment Complications: No Follow up Care: No Patient Instructions Provided: N/A Marin Stephen MD Jan 16, 2017 12:48
[2017-01-16] MEDS ORDERED: Acetaminophen IV 1,000 MG in IV Premix 1 EACH IV PRN (13:20)
--- NOTE | 2017-01-16 14:15 | OP ---
[address] [address] OPERATIVE REPORT PATIENT: OZIEL SNEED : 1940 MR#: [id number] ADMIT: 01/16/2017 JOB ID: [id number] DATE OF SURGERY: 01/16/2017 SURGEON: Win Gaffney MD HEALTH INFORMATICS ADVISOR: Kristofer Elena PA-C ANESTHESIA: General. PREOPERATIVE DIAGNOSIS(ES): Acute appendicitis. POSTOPERATIVE DIAGNOSIS(ES): Acute appendicitis. PROCEDURE: Open appendectomy. INDICATION FOR PROCEDURE: The patient is a 76-year-old female with diabetes and COPD who was found on CT scan to have acute appendicitis. PRINCIPAL FINDING: Definite acute appendicitis, nonperforated. Successful open appendectomy via a right paramedian incision. PROCEDURE COURSE: The patient was brought to the operating table and was provided with general anesthesia. The patient was given a Vásquez catheter and SCDs. A time-out was performed. The patient's abdomen was prepped and draped in the usual sterile fashion. The patient has had a prior midline scar from an open ventral hernia repair. Therefore the decision was made to go through the right paramedian space. A paramedian incision was made using the scalpel and subcutaneous tissue was entered using cautery. The rectus fascia was then opened and the rectus muscle was entered, and the peritoneum was entered without difficulty. We were able to identify the cecum and we could locate the appendix that was attached to the posterior aspect of it. There was definite dilation of the tip of the appendix with signs of acute inflammation. A window was then made in the mesoappendix adjacent to the base of the appendix and using a ELISSA stapler the base of the appendix was then transected. The mesoappendix was taken using the Impact device and the specimen was sent off to Pathology. Hemostasis was verified. The operative wound was irrigated. Next, we proceeded to close the fascia at both ends. Using 0 looped PDS suture. The two sutures were then tied at the midline. Local anesthetic was injected into the muscle layers for pain control. Next, the subcutaneous tissue was then reapproximated using interrupted Vicryl sutures and the skin was closed using giuliano. A sterile dressing was then placed over the wound. By the end of procedure, needle counts and sponge counts were correct. The patient was then extubated and taken to the recovery room in stable satisfactory condition.
--- NOTE | 2017-01-16 18:35 | NUR ---
Nausea Pt was feeling well and wanting to eat. Although after crackers were given pt started experiencing nausea again. Diet changed to sips and ice chips. Pt states that she is OK with this. Toradol given for pain. Plan to give 2 percs at next administration time to see if her nausea clears up once IV Dilaudid wear off.
[2017-01-16] MEDS ORDERED: Cefotetan Inj 2,000 MG in IV Premix 1 EACH IV SCH (20:30)
[2017-01-16] MEDS: Cefotetan Inj 2,000 MG in IV Premix 1 EACH IV SCH (21:36)
[2017-01-17] VITALS (10 sets, daily range): BP systolic 109–146; BP diastolic 64–72; PULSE 55–84; RESP 16–18; O2SAT 80–96
[2017-01-17] MEDS: Albuterol-Ipratropium 3 mL Inhalation Solution NEB SCH ×4 (02:12→19:56)
[2017-01-17] MEDS: 0.9% Sodium Chloride 1,000 ML IV SCH ×2 (02:27→08:05)
--- NOTE | 2017-01-17 05:16 | NUR ---
Pain management / mobility Pain adequately controlled while lying in bed with IV Toradol or 2 Percocet; pain increases significantly when moving and sitting up. Pt up at bedside to september in place with FWW, however, lightheadedness and nausea increased with this activity. Nausea subsided once back in bed. Hourly rounding ongoing.
[2017-01-17 05:50] LABS: BASOPHILS % (AUTO) 0.2 % (0-3); EOSINOPHILS % (AUTO) 1.1 % (0-5); Mean Corpuscular Volume 86.9 fL (81-100); NEUTROPHILS % (AUTO) 71.9 % (40-74); Platelet Count 188 bil/L (150-400)
[2017-01-17 06:19] LABS: Magnesium 2.4 mg/dL (1.6-2.6)
[2017-01-17] MEDS: oxyCODONE-Acetamin 5-325 mg Tablet PO PRN ×2 (06:21→19:21)
[2017-01-17] MEDS: Cefotetan Inj 2,000 MG in IV Premix 1 EACH IV SCH (10:58)
--- NOTE | 2017-01-17 14:37 | PCM.PNSURG ---
Subjective Visit Information: Reason for Visit Acute Appendicitis Surgery/Surgery Date APPENDECTOMY 01/16 Post-Op Day # Date of Admission: Jan 16, 2017 at 01:28 Hospital Day # Subjective: a little nausea, dizzy when getting out of bed, currie was removed earlier today ; no flatus or BM yet Objective Objective Awake in bed Getting nubulizer treatment Lungs clear Abd: obese, soft, abd binder in place, skin giuliano in place Vital Sign- Last 8 Hours Date Time Temp Pulse Resp B/P Pulse Ox O2 Delivery O2 Flow Rate FiO2 01/17/17 14:28 82 16 80 Room Air 01/17/17 10:17 55 01/17/17 08:52 56 16 96 Nasal Cannula 2.00 01/17/17 07:15 Supplement Oxygen Intake and Output- Last 8 Hour 01/17/17 Cumulative From/Thru 07:00 01/15/17 22:18 - 01/17/17 06:16 Intake Total 1565 ml 4421 ml Output Total 500 ml 1340 ml Balance 1065 ml 3081 ml Intake Oral 400 ml 1200 ml IV Total 1165 ml 3221 ml Output Urine Total 500 ml 1335 ml Estimated Blood Loss 5 ml Result Diagram: 01/17/17 0515 01/17/17 0515 Assessment & Plan Impression POD #1 s/p open appendectomy COPD DM Hct from 43 to 33 Problems: Plan Await bowel function return Recheck H & H now and in AM Incentive spirometer NPO x sips and chips. Abd binder Resuscitation Status: CPR: Attempt Resuscitation Win Gaffney MD Jan 17, 2017 14:37
--- NOTE | 2017-01-17 16:46 | PCM.PNMED ---
Subjective Date of Service Jan 17, 2017 Subjective Still having abdominal pain, belching not actual nausea but not passing gas or having stools. No chest pain no dyspnea Exam Vital Signs Vital Sign - Last Date Time Temp Pulse Resp B/P Pulse Ox O2 Delivery O2 Flow Rate FiO2 01/17/17 15:55 36.6 84 17 122/69 92 Nasal Cannula 2.00 Intake and Output 01/16/17 01/16/17 01/17/17 Cumulative From/Thru 15:00 23:00 07:00 01/15/17 22:18 - 01/17/17 06:16 Intake Total 800 ml 800 ml 1565 ml 4421 ml Output Total 290 ml 100 ml 500 ml 1340 ml Balance 510 ml 700 ml 1065 ml 3081 ml Intake Oral 800 ml 400 ml 1200 ml IV Total 800 ml 1165 ml 3221 ml Output Urine Total 285 ml 100 ml 500 ml 1335 ml Estimated Blood Loss 5 ml 5 ml Exam Gen.- A+ O 3 no apparent distress. Morbidly obese female lying in bed Eyes- open conjunctiva clear, pupils equal nonicteric Mouth-lips normal ENT- ears normal, nose normal, hearing intact Neck- supple/trach midline CVS- RRR no murmur or gallop Lungs- CTA GI- NABS/soft in binder kind of tender Musc- moving 4 no obvious deformity Neuro- cranial nerves II through XII intact to gross examination, nonfocal Skin- warm and dry, no rashes/lesions/wounds noted Psych- pleasant and appropriate, Lab and Diagnostics Result Diagram: 01/17/17 1445 01/17/17 0515 Additional Diagnostics DATE OF SURGERY: 01/16/2017 SURGEON: Win Gaffney MD OCCUPATIONAL PHYSICIAN: Kristofer Elena PA-C ANESTHESIA: General. PREOPERATIVE DIAGNOSIS(ES): Acute appendicitis. POSTOPERATIVE DIAGNOSIS(ES): Acute appendicitis. PROCEDURE: Open appendectomy. INDICATION FOR PROCEDURE: The patient is a 76-year-old female with diabetes and COPD who was found on CT scan to have acute appendicitis. PRINCIPAL FINDING: Definite acute appendicitis, nonperforated. Successful open appendectomy via a right paramedian incision. Assessment & Plan 76-year-old female with abdominal pain S/P appendectomy 01/16 01/17 postop day 1 still not passing gas or taking food real well management per surgery. # appendicitis, s/p sukumar Gaffney 01/16 on cefotetan per surg # COPD, present admission. Active. - On home O2 at night 2 L nasal cannula. - Duo nebs every 6 hours scheduled. - Albuterol when necessary for shortness of breath. 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 - Remote telemetry ordered. #Chronic hypertension, present on admission. Stable. - Patient reports this is mostly associated with anxiety. - Plan to continue home telmisartan following surgery. Note this is patient's home medication and is not available at the hospital. - Acetaminophen for mild pain when necessary. Bowel regimen Senna and MiraLAX scheduled and PRN. Zofran when necessary for nausea and vomiting. SubQ heparin held for now. SCDs in place. High-risk medications: IV Dilaudid. Social: Of note patient's is suffering from dementia and seems to be a focal point of her life. 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 They currently reside in [place] at a [address] [place] [address] home together. They have good family support no current pets. Disposition: Likely here for > 2 midnights. Dependent upon surgical intervention and status following surgery. Will be discharged to home when medically stable. VTE Mechanical Devices: Intermittant Pneumatic CD Resuscitation Status: CPR: Attempt Resuscitation Gianluca Carmona MD Jan 17, 2017 16:46
[2017-01-17] MEDS: Heparin 5,000 Unit/mL Inj SUBQ SCH (16:57)
[2017-01-17] MEDS ORDERED: 0.9% Sodium Chloride 1,000 ML IV ONE (17:05)
--- NOTE | 2017-01-17 17:51 | PCM.PNSURG ---
Subjective Date of Service: Jan 17, 2017 Date of Service: Jan 17, 2017 Visit Information: Reason for Visit Acute Appendicitis Surgery/Surgery Date OPEN APPENDECTOMY 01/16 Post-Op Day # 1 Date of Admission: Jan 16, 2017 at 01:28 Hospital Day # Subjective: No abdominal pain & passing flatus but no BM. Denies pain nausea or vomiting. Out of bed with mild dizziness using walker. Low urine output but patient reports minimal by mouth fluid intake. Otherwise resting comfortably. Postop General: No Complaints Gastrointestinal: No N/V, Passing Flatus Pain Management: No or Minimal Pain Postop Activity: Ambulates with Assist Device Objective Vital Sign- Last 8 Hours Date Time Temp Pulse Resp B/P Pulse Ox O2 Delivery O2 Flow Rate FiO2 01/17/17 15:55 36.6 84 17 122/69 92 Nasal Cannula 2.00 01/17/17 14:28 82 16 80 Room Air 01/17/17 10:17 55 Intake and Output- Last 8 Hour 01/17/17 Cumulative From/Thru 07:00 01/15/17 22:18 - 01/17/17 06:16 Intake Total 1565 ml 4421 ml Output Total 500 ml 1340 ml Balance 1065 ml 3081 ml Intake Oral 400 ml 1200 ml IV Total 1165 ml 3221 ml Output Urine Total 500 ml 1335 ml Estimated Blood Loss 5 ml General: Alert, Oriented X3, Cooperative, No Acute Distress Lungs: Clear to Auscultation, Wheezes (Mid) Heart: Exam Unremarkable Abdomen: Soft, Non-tender, Non-distended, Normoactive bowel tones SURGICAL WOUND : Wound General Appearence: [place], Intact, Incision Healing, No Erythema, No Discharge, No Inflammatory Changes Extremities: Thigh&Calf Soft/Nontender Neuro: Normal Speech Catheters: Urethral 2 Way Vásquez (will be removed today.) Result Diagram: 01/17/17 1445 01/17/17 0515 Assessment & Plan Impression Primary diagnosis: 1. Open appendectomy postop day #1 bowel function beginning to return and nonseptic. Other chronic diagnoses: 1. COPD 2. WPW syndrome 3. Diabetes Problems: Plan 1. Use SCDs & start subcutaneous heparin. 2. Advance diet to clear fluids. 3. Physical therapy consult. 4. DC Vásquez 5. Normal saline liter fluid bolus then change to D5 half normal saline with 20 mEq potassium. 6. A.m. CBC & CMP 7. FSBS hyepr/glycemia monitoring & treatment order set protocol. VTE Prophylaxis: SCDs Resuscitation Status: CPR: Attempt Resuscitation Orlando Calvo PA-C Jan 17, 2017 17:51
[2017-01-17] MEDS: D5 0.45% NaCl + KCl 20 mEq/L 1,000 ML IV SCH (17:55)
[2017-01-17] MEDS ORDERED: D5 0.45% NaCl + KCl 20 mEq/L 1,000 ML IV SCH (18:05)
[2017-01-17] MEDS ORDERED: Glucose 40% Oral Gel 15 Gm Tube PO PRN (18:05)
--- NOTE | 2017-01-17 18:32 | NUR ---
Urination, Pain Patient able to urinate to baseline after currie catheter removal. Patient has had some intermittent pain to the surgical site this shift, well controlled with ordered pain medications. Care is ongoing.
[2017-01-17] MEDS: Insulin LISPRO 300 Unit/3 mL Inj SUBQ SCH (21:57)
[2017-01-18] VITALS (10 sets, daily range): BP systolic 110–138; BP diastolic 63–80; PULSE 57–77; RESP 16–18; O2SAT 92–99
[2017-01-18] MEDS ORDERED: Heparin 5,000 Unit/mL Inj SUBQ SCH (00:30)
[2017-01-18] MEDS: Heparin 5,000 Unit/mL Inj SUBQ SCH ×3 (01:07→18:26)
[2017-01-18] MEDS: oxyCODONE-Acetamin 5-325 mg Tablet PO PRN ×2 (01:10→10:06)
[2017-01-18] MEDS: D5 0.45% NaCl + KCl 20 mEq/L 1,000 ML IV SCH ×2 (02:02→10:40)
[2017-01-18] MEDS: Albuterol-Ipratropium 3 mL Inhalation Solution NEB SCH ×4 (02:47→19:42)
--- NOTE | 2017-01-18 04:39 | NUR ---
Pain / mobility Pain well controlled with prn PO meds, pain does not bother pt at all except when getting in and out of bed. Continuing with medication at regular intervals for optimal pain management. Ambulating safely to BR. Hourly rounding ongoing.
[2017-01-18 05:24] LABS: BASOPHILS % (AUTO) 0.1 % (0-3); EOSINOPHILS % (AUTO) 1.4 % (0-5); MONOCYTES % (AUTO) 7.7 % (4-12); Mean Corpuscular Hemoglobin 27.7 pg (27.0-35.0); NEUTROPHILS % (AUTO) 68.6 % (40-74); Platelet Count 180 bil/L (150-400)
--- NOTE | 2017-01-18 06:51 | PCM.PNSURG ---
Subjective Visit Information: Reason for Visit Acute Appendicitis Surgery/Surgery Date APPENDECTOMY 01/16 Post-Op Day # Date of Admission: Jan 16, 2017 at 01:28 Hospital Day # Subjective: overnight tolerated clear liquids without n/v, no flatus or BM yet, able to get up to bathroom, using a walker, has incisional pain with movement Objective Objective Awake in bed Abd: soft, incision clean with giuliano, wearing a binder UOP 1150 cc Vital Sign- Last 8 Hours Date Time Temp Pulse Resp B/P Pulse Ox O2 Delivery O2 Flow Rate FiO2 01/18/17 05:59 36.6 71 17 118/63 96 Nasal Cannula 2.00 01/18/17 02:47 70 18 95 Room Air Intake and Output- Last 8 Hour 01/18/17 Cumulative From/Thru 07:00 01/15/17 22:18 - 01/18/17 06:05 Intake Total 2321 ml 8827 ml Output Total 1150 ml 3690 ml Balance 1171 ml 5137 ml Intake Oral 1000 ml 3050 ml IV Total 1321 ml 5777 ml Output Urine Total 1150 ml 3685 ml Estimated Blood Loss 5 ml # Bowel Movements 0 0 Result Diagram: 01/18/17 0509 01/18/17 0509 Assessment & Plan Impression POD #2 s/p open appendectomy WBC of 8 today Problems: Plan Continue with clear liquid diet, will advance diet once she has flatus or BM OOB/ambulate as tolerated Pain control Decrease IVF VTE Prophylaxis: Sub-Q Heparin (Unfractionated) Resuscitation Status: CPR: Attempt Resuscitation Win Gaffney MD Jan 18, 2017 06:51
[2017-01-18] MEDS: Insulin LISPRO 300 Unit/3 mL Inj SUBQ SCH ×4 (08:00→22:00)
--- NOTE | 2017-01-18 09:19 | NUR ---
Social Work- Initial Assessment/ Readiness for Discharge Data: See Initial Assessment. Pt is a 76 year old female admitted 01/16/17 for acute appendicitis per H&P. Pt's payor is [facility] and [email or web address]. Pt's PCP is Wilver Whelan MD. Pt's readmit risk score is 2- low risk. Pt's designated D/C Planning contact is her son Uriel [phone] and daughter Cristina [phone]. Pt's listed NOK is Jong Staton [phone]. Pt's has dementia and is being cared for by Uriel while pt is in the hospital. Pt is her husbands caregiver, typically. SW met with pt at bedside regarding discharge plan, SW role explained. Pt alert and oriented x3. Pt resides in [place] in a [place] in a home with two steps to enter. Pt uses no DME at baseline and continues to drive. Pt has no HH or SNF history. Pt has LTC insurance but could not remember the name of the company. Pt has no VA benefits. Pt uses Home O2 and nebulizers through [employer], pt uses 2L O2 at baseline and nebulizes every 6 hours. Pt has no DPOA on file, pt states she would want her children to make her medical decisions. SW provided DPOA paperwork at bedside. Pt confirmed that her family would be transporting home at discharge via POV. Pt's son Uriel will be staying with her and her until Tuesday, then her daughter in law Quita will stay an additional week if necessary after Tuesday. No discharge needs identified at this time. SW will continue to follow if needs arise. Assessment: Pt who is independent at baseline and who has excellent family support. Plan: Pt confirmed that her family would be transporting home at discharge via POV. Pt's son Uriel will be staying with her and her until Tuesday, then her daughter in law Quita will stay an additional week if necessary after Tuesday. No discharge needs identified at this time. SW will continue to follow if needs arise. LOIS Stern Addendum: 01/18/17 at 0924 by LESLIE ALEX SS Amended: Links added.
[2017-01-18] MEDS ORDERED: Ketorolac 15 mg/mL Inj IVPUSH PRN (10:20)
--- NOTE | 2017-01-18 12:00 | NUR ---
Left AC Reddened Left AC reddened at IV site. Pt previously has D5 1/2NS with 20K running at 75mol. Per MD this was SL. Marked margins of redness and will continue to monitor. Pt declines any pain. Hot to touch.
--- NOTE | 2017-01-18 13:16 | NUR ---
Evaluation completed. Please go to "Notes" then click on "Assessments and Notes" (bottom left corner of screen). Then select appropriate discipline tab on top of screen.
--- NOTE | 2017-01-18 13:33 | PCM.PNMED ---
Subjective Date of Service Jan 18, 2017 Subjective Pain is better controlled, was nauseated, still belching and no gas. No chest pain, no dyspnea no vomiting Exam Vital Signs Vital Sign - Last Date Time Temp Pulse Resp B/P Pulse Ox O2 Delivery O2 Flow Rate FiO2 01/18/17 11:07 36.9 77 18 110/68 98 Nasal Cannula 2.00 Intake and Output 01/17/17 01/17/17 01/18/17 Cumulative From/Thru 15:00 23:00 07:00 01/15/17 22:18 - 01/18/17 06:05 Intake Total 2085 ml 2321 ml 8827 ml Output Total 1200 ml 1150 ml 3690 ml Balance 885 ml 1171 ml 5137 ml Intake Oral 850 ml 1000 ml 3050 ml IV Total 1235 ml 1321 ml 5777 ml Output Urine Total 1200 ml 1150 ml 3685 ml Estimated Blood Loss 5 ml # Bowel Movements 0 0 Exam Gen.- A+ O 3 no apparent distress. Morbidly obese female lying in bed Eyes- open conjunctiva clear, pupils equal nonicteric Mouth-lips normal ENT- ears normal, nose normal, hearing intact Neck- supple/trach midline CVS- RRR no murmur or gallop Lungs- CTA GI- NABS/soft in binder kind of tender Musc- moving 4 no obvious deformity Neuro- cranial nerves II through XII intact to gross examination, nonfocal Skin- warm and dry, no rashes/lesions/wounds noted Psych- pleasant and appropriate, Lab and Diagnostics Result Diagram: 01/18/17 0509 01/18/17 0509 Additional Diagnostics DATE OF SURGERY: 01/16/2017 SURGEON: Win Gaffney MD ENGINEERING ASSISTANT: Kristofer Elena PA-C ANESTHESIA: General. PREOPERATIVE DIAGNOSIS(ES): Acute appendicitis. POSTOPERATIVE DIAGNOSIS(ES): Acute appendicitis. PROCEDURE: Open appendectomy. INDICATION FOR PROCEDURE: The patient is a 76-year-old female with diabetes and COPD who was found on CT scan to have acute appendicitis. PRINCIPAL FINDING: Definite acute appendicitis, nonperforated. Successful open appendectomy via a right paramedian incision. Assessment & Plan 76-year-old female with abdominal pain S/P appendectomy 01/16 01/17 not passing gas or taking food real well management per surgery. 01/18 patient feeling better but still awaiting bowel recovery. Starting H2 RA for stomach prophylaxis and lactobacillus # appendicitis, s/p appy Gulshan 01/16 on cefotetan stopped 01/18 # COPD, present admission. Active.Patient never told she has PIERRE, I told her we will order nocturnal oximetry 01/18 - On home O2 at night 2 L nasal cannula. - Duo nebs every 6 hours scheduled. - Albuterol when necessary for shortness of breath. 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 - Remote telemetry ordered. #Chronic hypertension, present on admission. Stable. - Patient reports this is mostly associated with anxiety. - Plan to continue home telmisartan following surgery. Note this is patient's home medication and is not available at the hospital. - Acetaminophen for mild pain when necessary. Bowel regimen Senna and MiraLAX scheduled and PRN. Zofran when necessary for nausea and vomiting. SubQ heparin held for now. SCDs in place. High-risk medications: IV Dilaudid. Social: Of note patient's is suffering from dementia and seems to be a focal point of her life. 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 They currently reside in [place] at a [place] and [place] home together. They have good family support no current pets. Disposition: Full code from home to return home when bowels recover. VTE Prophylaxis: SCDs VTE Mechanical Devices: Intermittant Pneumatic CD Resuscitation Status: CPR: Attempt Resuscitation Gianluca Carmona MD Jan 18, 2017 13:32
--- NOTE | 2017-01-18 19:40 | NUR ---
Ambulation / flatulence Pt ambulating SBA with FWW with steady gait. Pt did pass a very small amount of flatulence this evening. Encourage her to continue to ambulated short distances.
[2017-01-19] VITALS (12 sets, daily range): BP systolic 111–148; BP diastolic 66–83; PULSE 54–83; RESP 16–20; O2SAT 94–98
[2017-01-19] MEDS: Heparin 5,000 Unit/mL Inj SUBQ SCH ×3 (00:47→17:47)
[2017-01-19] MEDS: Albuterol-Ipratropium 3 mL Inhalation Solution NEB SCH ×4 (02:30→21:08)
[2017-01-19] MEDS: oxyCODONE-Acetamin 5-325 mg Tablet PO PRN ×4 (04:22→22:13)
--- NOTE | 2017-01-19 07:27 | NUR ---
Pain Patient felt her pain level was comfortable for most of shift, but after getting up to use the bathroom in the AM, the patient stated she may have let herself go too long with out taking something for pain . Percocet was given and patient stated she understood that she should try to stay ahead of the pain especially when ambulating around floor. Up independent w/steady gait. vitals stable Tele sinus 67.
[2017-01-19] MEDS: Insulin LISPRO 300 Unit/3 mL Inj SUBQ SCH ×4 (08:00→22:00)
--- NOTE | 2017-01-19 10:50 | PCM.PNSURG ---
Subjective Date of Service: Jan 19, 2017 Visit Information: Reason for Visit Acute Appendicitis Surgery/Surgery Date APPENDECTOMY 01/16 Post-Op Day #3 Date of Admission: Jan 16, 2017 at 01:28 Hospital Day # Subjective: Drinking liquids with no nausea or vomiting. Has had 3 instances of flatus over the last 24 hours, no bowel movement. Ambulating short distances in the hallway using a walker. Pain moderately well controlled with oral analgesic. Using incentive spirometry. Postop General: No Complaints Gastrointestinal: No N/V, Passing Flatus (intermittently) Pain Management: PO Postop Activity: Ambulates with Assist Device Objective Vital Sign- Last 8 Hours Date Time Temp Pulse Resp B/P Pulse Ox O2 Delivery O2 Flow Rate FiO2 01/19/17 10:05 56 01/19/17 09:12 83 18 94 Nasal Cannula 2.00 01/19/17 08:16 36.8 66 18 136/71 95 Nasal Cannula 2.00 01/19/17 04:38 36.8 74 20 136/78 95 Nasal Cannula 2.00 Intake and Output- Last 8 Hour 01/19/17 Cumulative From/Thru 07:00 01/15/17 22:18 - 01/19/17 05:15 Intake Total 700 ml 57323 ml Output Total 1000 ml 6390 ml Balance -300 ml 5017 ml Intake Oral 700 ml 5190 ml IV Total 6217 ml Output Urine Total 1000 ml 6385 ml Estimated Blood Loss 5 ml # Bowel Movements 0 0 General: Alert, Cooperative, Mild Distress Lungs: Clear to Auscultation Heart: Regular Rate/Rhythm, Murmur (grade 2/6 systolic murmur heard best right upper sternal border.) Abdomen: Soft, Non-tender, Protuberant SURGICAL WOUND : Wound General Appearence: [place], Intact, Well Approximated, No Erythema, No Discharge Extremities: Thigh&Calf Soft/Nontender Neuro: Normal Speech Catheters: None Result Diagram: 01/18/17 0509 01/18/17 0509 Assessment & Plan Impression Primary diagnosis: Acute appendicitis. POD #3 with equivocal return of bowel function, drinking clear liquids. Otherwise stable. Other chronic conditions: 1. COPD 2. WPW 3. Former cigarette smoker 4. Type II diabetes mellitus 5. Hypertension 6. Obesity, BMI 35.7 Problems: Plan 1. Dressing is changed. 2. Continue clear liquids until more convincing return of bowel function. 3. The patient is encouraged to ambulate. 4. The patient is instructed to request a medication prior to pain escalating to an [id number] stage. Pain Management: Oral analgesic VTE Prophylaxis: SCDs Resuscitation Status: CPR: Attempt Resuscitation Kristofer Elena PA-C Jan 19, 2017 10:50
[2017-01-19] MEDS: Ondansetron 2 mg/mL 2 mL Inj IVPUSH PRN (12:55)
--- NOTE | 2017-01-19 13:20 | NUR ---
NUTRITION ASSESSMENT: ASSESS: 76 YO female admitted for abdominal pain with acute appendicitis. Pt is s/p appendectomy on 01/17. Pt continues on clear liquids while pt awaits return of bowel function. Pt starting to pass some flatus per notes. PMHx: COPD, Morena parkinsons white syndrome. LABS: Reviewed. Glu 147, Ca 7.9, Alb 3.2. MEDS: Reviewed. GI: Flatus, no BM yet reported. CURRENT WT: 97.3 kg. DIET: Clear liquids, PO 100%. EST. NEEDS: 2588-9202 kcals (20-25 kcals/kg BW), 70-85 g protein (1.2-1.5 g/kg IBW) NUTRITION DIAGNOSIS: 1.) Inadequate oral intake related to altered GI function as evidenced by current NPO/Clear liquid diet status x 4 days. NUTRITION INTERVENTION: 1.) Will add ensure clear and Gelatein plus to all trays while pt remains on clear liquids. MONITOR / EVAL: Diet advancement / tolerance, labs, GI and nutritional status. Follow per high nutritional risk guidelines. Addendum: 01/19/17 at [address] Pt with PMHx of prediabetes vs DM type II, diet controlled per notes. will change Gelatein plus to Gelatein 20. Addendum: 01/20/17 at [address] Pt diet has been advanced to soft today. No po intake yet reported. Will change supplements to Glucerna all trays and continue to monitor po intake.
--- NOTE | 2017-01-19 15:14 | PCM.PNMED ---
Subjective Date of Service Jan 19, 2017 Subjective Still having abdominal pain but passing gas no BM. No chest pain, no dyspnea, no nausea or vomiting Exam Vital Signs Vital Sign - Last Date Time Temp Pulse Resp B/P Pulse Ox O2 Delivery O2 Flow Rate FiO2 01/19/17 14:55 36.5 57 18 140/71 98 Nasal Cannula 2.00 Intake and Output 01/18/17 01/18/17 01/19/17 Cumulative From/Thru 15:00 23:00 07:00 01/15/17 22:18 - 01/19/17 05:15 Intake Total 440 ml 1440 ml 700 ml 47660 ml Output Total 1700 ml 1000 ml 6390 ml Balance 440 ml -260 ml -300 ml 5017 ml Intake Oral 1440 ml 700 ml 5190 ml IV Total 440 ml 6217 ml Output Urine Total 1700 ml 1000 ml 6385 ml Estimated Blood Loss 5 ml # Bowel Movements 0 0 0 Exam Gen.- A+ O 3 no apparent distress. Morbidly obese female lying in bed Eyes- open conjunctiva clear, pupils equal nonicteric Mouth-lips normal ENT- ears normal, nose normal, hearing intact Neck- supple/trach midline CVS-normal rate Lungs-no respiratory distress, normal rate no accessory muscle usage GI-generous, in binder Musc- moving 4 no obvious deformity Neuro- cranial nerves II through XII intact to gross examination, nonfocal Skin- warm and dry, no rashes/lesions/wounds noted Psych- pleasant and appropriate, Lab and Diagnostics Result Diagram: 01/18/17 0509 01/18/17 0509 Additional Diagnostics DATE OF SURGERY: 01/16/2017 SURGEON: Win Gaffney MD BIAZZI NITRATOR OPERATOR: Kristofer Elean PA-C ANESTHESIA: General. PREOPERATIVE DIAGNOSIS(ES): Acute appendicitis. POSTOPERATIVE DIAGNOSIS(ES): Acute appendicitis. PROCEDURE: Open appendectomy. INDICATION FOR PROCEDURE: The patient is a 76-year-old female with diabetes and COPD who was found on CT scan to have acute appendicitis. PRINCIPAL FINDING: Definite acute appendicitis, nonperforated. Successful open appendectomy via a right paramedian incision. Assessment & Plan 76-year-old female with abdominal pain S/P appendectomy 01/16 6 not passing gas or taking food real well management per surgery. 01/18 patient feeling better but still awaiting bowel recovery. Starting H2 RA for stomach prophylaxis and lactobacillus 01/19, passing gas to no BM still on clears to changes # appendicitis, s/p apptyrone Gaffney 01/16 on cefotetan stopped 01/18 # COPD, present admission. Active.Patient never told she has PIERRE, nocturnal oximetry 01/18 can figure out how to ordered 01/19 - On home O2 at night 2 L nasal cannula. - Duo nebs every 6 hours scheduled. - Albuterol when necessary for shortness of breath. 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 - Remote telemetry ordered. #Chronic hypertension, present on admission. Stable. - Patient reports this is mostly associated with anxiety. - Plan to continue home telmisartan following surgery. Note this is patient's home medication and is not available at the hospital. - Acetaminophen for mild pain when necessary. Bowel regimen Senna and MiraLAX scheduled and PRN. Zofran when necessary for nausea and vomiting. SubQ heparin held for now. SCDs in place. High-risk medications: IV Dilaudid. Social: Of note patient's is suffering from dementia and seems to be a focal point of her life. 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 They currently reside in [place] at a [place] home together. They have good family support no current pets. Disposition: Full code from home to return home when bowels recover. VTE Prophylaxis: SCDs VTE Mechanical Devices: Intermittant Pneumatic CD Resuscitation Status: CPR: Attempt Resuscitation Gianluca Carmona MD Jan 19, 2017 15:14
--- NOTE | 2017-01-19 16:49 | PATH ---
SURGICAL PATHOLOGY Attending Physician:Win Gaffney M.D. CASE STATUS: Signed Out PATIENT NAME: OZIEL SNEED PID: [id number] : 1940 DATE COLLECTED:01/16/2017 00:00 SPECIMEN: Appendix CLINICAL HISTORY: ACUTE APPENDICITIS 1. APPENDIX FINAL DIAGNOSIS: 1.APPENDIX, LAPARASCOPIC APPENDECTOMY: ACUTE APPENDICITIS AND SEROSITIS WITH A REGION SUGGESTIVE OF RUPTURE BY GROSS EXAMINATION. ICD10 K35.2 GROSS DESCRIPTION: The specimen is received in formalin, labeled with the patient's name, sublabeled as appendix, and consists of an intact appendix (length-7.8 cm, diameter-1.1 cm) with attached mesoappendix (up to 1.8 cm in depth). The resection margin is received stapled. The serosa is ortega-pink smooth and shiny and partially covered in ortega flaky friable exudate. The lumen contains pale dempsey solid firm material. The wall is up to 0.4 cm thick. An apparent rupture site is identified within the tip. No nodules, masses or lesions are identified. Ink code: black-proximal. 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 01/18/17 MICRO DESCRIPTION: See diagnosis. ICD-9 CODES: CPT CODES: 1: 19042 Electronically Signed Out Kathryn Marquez MD [facility] Pathology [facility] [address], [place] [address] Technical component performed at [facility], [facility] [address], [place], [address]
--- NOTE | 2017-01-19 19:55 | NUR ---
Ambulation / flatulence. Ambulates well SBA with FWW with steady gait. ABD binder in place. passing gas but no BM at this time. Stool softeners given. Care continues
[2017-01-20] VITALS (10 sets, daily range): BP systolic 124–145; BP diastolic 66–75; PULSE 52–93; RESP 16–18; O2SAT 93–98
[2017-01-20] MEDS: Heparin 5,000 Unit/mL Inj SUBQ SCH ×3 (01:18→17:21)
[2017-01-20] MEDS: Albuterol-Ipratropium 3 mL Inhalation Solution NEB SCH ×4 (02:36→20:29)
[2017-01-20 05:52] LABS: BASOPHILS % (AUTO) 0.7 % (0-3); EOSINOPHILS % (AUTO) 6.1 % (0-5); MONOCYTES % (AUTO) 7.1 % (4-12); Mean Corpuscular Hemoglobin 27.9 pg (27.0-35.0); Mean Corpuscular Volume 88.3 fL (81-100); Platelet Count 192 bil/L (150-400)
--- NOTE | 2017-01-20 07:08 | PCM.PNSURG ---
Subjective Visit Information: Reason for Visit Acute Appendicitis Surgery/Surgery Date APPENDECTOMY 01/16 Post-Op Day # Date of Admission: Jan 16, 2017 at 01:28 Hospital Day # Subjective: reports passing flatus, no BM yet, taking less pain medication, no nausea, walked yesterday Objective Objective Arousable in bed Abd: soft, nontender, incision clean with giuliano Vital Sign- Last 8 Hours Date Time Temp Pulse Resp B/P Pulse Ox O2 Delivery O2 Flow Rate FiO2 01/20/17 06:26 36.6 61 17 125/74 96 Nasal Cannula 2.00 01/20/17 05:57 53 01/20/17 02:36 52 16 98 Nasal Cannula 2.00 01/19/17 23:54 36.6 59 17 111/66 97 Nasal Cannula 2.00 Intake and Output- Last 8 Hour 01/20/17 Cumulative From/Thru 07:00 01/15/17 22:18 - 01/19/17 20:56 Intake Total 46573 ml Output Total 7427 ml Balance 5380 ml Intake Oral 6590 ml IV Total 6217 ml Output Urine Total 7422 ml Estimated Blood Loss 5 ml # Bowel Movements 0 Result Diagram: 01/20/17 0503 01/18/17 0509 Assessment & Plan Impression POD #4 s/p open appendectomy, so far tolerating clear liquids COPD DM WBC 6.0 Problems: Plan Advance to soft diet today OOB/ambulate PO pain control Miralax VTE Prophylaxis: SCDs Resuscitation Status: CPR: Attempt Resuscitation Win Gaffney MD Jan 20, 2017 07:08
--- NOTE | 2017-01-20 07:46 | NUR ---
Pain Patient has been managing pain well with one Percocet. Patient up independent from bed to bathroom. Steady gait with FWW. Patient on 2L O2 via nasal canula, at home as well. Tele sinus 54. Blood sugar 117 last check.
[2017-01-20] MEDS: Insulin LISPRO 300 Unit/3 mL Inj SUBQ SCH ×4 (08:00→22:00)
[2017-01-20] MEDS: Polyethylene Glycol (PEG) 17 Gm Powder PO PRN (09:35)
[2017-01-20] MEDS: oxyCODONE-Acetamin 5-325 mg Tablet PO PRN ×2 (10:16→17:22)
--- NOTE | 2017-01-20 17:27 | PCM.PNMED ---
Subjective Date of Service Jan 20, 2017 Subjective Passing gas but no bowel movement very hungry. No chest pain, no dyspnea, no nausea or vomiting. Exam Vital Signs Vital Sign - Last Date Time Temp Pulse Resp B/P Pulse Ox O2 Delivery O2 Flow Rate FiO2 01/20/17 15:04 59 16 97 Nasal Cannula 2.00 01/20/17 13:27 36.8 136/71 Intake and Output 01/19/17 01/19/17 01/20/17 Cumulative From/Thru 15:00 23:00 07:00 01/15/17 22:18 - 01/19/17 20:56 Intake Total 1400 ml 14468 ml Output Total 1037 ml 7427 ml Balance 363 ml 5380 ml Intake Oral 1400 ml 6590 ml IV Total 6217 ml Output Urine Total 1037 ml 7422 ml Estimated Blood Loss 5 ml # Bowel Movements 0 Exam Gen.- A+ O 3 no apparent distress. Morbidly obese female lying in bed Eyes- open conjunctiva clear, pupils equal nonicteric Mouth-lips normal ENT- ears normal, nose normal, hearing intact Neck- supple/trach midline CVS-normal rate Lungs-no respiratory distress, normal rate no accessory muscle usage GI-generous, in binder Musc- moving 4 no obvious deformity Neuro- cranial nerves II through XII intact to gross examination, nonfocal Skin- warm and dry, no rashes/lesions/wounds noted Psych- pleasant and appropriate, Lab and Diagnostics Result Diagram: 01/20/17 0503 01/18/17 0509 Additional Diagnostics DATE OF SURGERY: 01/16/2017 SURGEON: Win Gaffney MD FORMING PRESS OPERATOR: Kristofer Elena PA-C ANESTHESIA: General. PREOPERATIVE DIAGNOSIS(ES): Acute appendicitis. POSTOPERATIVE DIAGNOSIS(ES): Acute appendicitis. PROCEDURE: Open appendectomy. INDICATION FOR PROCEDURE: The patient is a 76-year-old female with diabetes and COPD who was found on CT scan to have acute appendicitis. PRINCIPAL FINDING: Definite acute appendicitis, nonperforated. Successful open appendectomy via a right paramedian incision. Assessment & Plan 76-year-old female with abdominal pain S/P appendectomy 01/16 01/17 not passing gas or taking food real well management per surgery. 01/18 patient feeling better but still awaiting bowel recovery. Starting H2 RA for stomach prophylaxis and lactobacillus 01/19, passing gas to no BM still on clears to changes 6/22 labs reviewed no changes, still no BM but passing gas surgery advancing diet. Continues to be medically stable. # appendicitis, s/p sukumar Gaffney 01/16 on cefotetan stopped 01/18 # COPD, present admission. Active.Patient never told she has PIERRE, nocturnal oximetry 01/18 can figure out how to ordered 01/19 - On home O2 at night 2 L nasal cannula. - Duo nebs every 6 hours scheduled. - Albuterol when necessary for shortness of breath. 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 - Remote telemetry ordered. #Chronic hypertension, present on admission. Stable. - Patient reports this is mostly associated with anxiety. - Plan to continue home telmisartan following surgery. Note this is patient's home medication and is not available at the hospital. - Acetaminophen for mild pain when necessary. Bowel regimen Senna and MiraLAX scheduled and PRN. Zofran when necessary for nausea and vomiting. SubQ heparin held for now. SCDs in place. High-risk medications: IV Dilaudid. Social: Of note patient's is suffering from dementia and seems to be a focal point of her life. 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 They currently reside in [place] at a [place] home together. They have good family support no current pets. Disposition: Full code from home to return home when bowels recover. VTE Prophylaxis: SCDs VTE Mechanical Devices: Intermittant Pneumatic CD Resuscitation Status: CPR: Attempt Resuscitation Gianluca Carmona MD Jan 20, 2017 17:27
--- NOTE | 2017-01-20 19:40 | NUR ---
GI pt taking soft diet today without problems. No nausea, no bloating, pt is passing flatus but has not had a BM
[2017-01-21] VITALS (11 sets, daily range): BP systolic 147–170; BP diastolic 72–89; PULSE 52–85; RESP 14–20; O2SAT 92–96
[2017-01-21] MEDS: Heparin 5,000 Unit/mL Inj SUBQ SCH ×3 (00:17→16:36)
[2017-01-21] MEDS: Albuterol-Ipratropium 3 mL Inhalation Solution NEB SCH ×3 (02:00→14:46)
[2017-01-21] MEDS: oxyCODONE-Acetamin 5-325 mg Tablet PO PRN ×2 (06:17→16:37)
--- NOTE | 2017-01-21 07:54 | NUR ---
Shift note uneventful night only needing pain med at end of shift no n/v
[2017-01-21] MEDS: Insulin LISPRO 300 Unit/3 mL Inj SUBQ SCH ×3 (08:00→16:36)
[2017-01-21] MEDS: Polyethylene Glycol (PEG) 17 Gm Powder PO PRN (08:27)
[2017-01-21] MEDS ORDERED: Albuterol HFA 60 Puff 8 Gm Inhaler INHALATION PRN (08:35)
[2017-01-21] MEDS ORDERED: Polyethylene Glycol (PEG) 17 Gm Powder PO PRN (08:35)
--- NOTE | 2017-01-21 08:44 | NUR ---
NUTRITION FOLLOW-UP: ASSESS: 76 YO female admitted for abdominal pain with acute appendicitis. Pt is s/p appendectomy on 01/17. Pt was able to have her diet advanced to Soft on 01/20. She is tolerating PO well at 100% of most meals with minimal n/v. Still no BM reported. PMHx: COPD, Morena parkinsons white syndrome. LABS: Reviewed. (01/18) Glu 147, Ca 7.9, Alb 3.2. MEDS: Reviewed. Senna, miralax GI: Flatus, no BM yet reported. CURRENT WT: 101.1kg, BMI 37.1kg/m2, admit wt 97.3kg, IBW: 56.8kg DIET: Soft, PO 100% EST. NEEDS: 7956-7520 kcals (20-25 kcals/kg BW), 70-85 g protein (1.2-1.5 g/kg IBW) NUTRITION DIAGNOSIS: 1.) Inadequate oral intake related to altered GI function as evidenced by current NPO/Clear liquid diet status x 4 days. --IMPROVING NUTRITION INTERVENTION: 1.) Do to good PO intake, will decrease supplements to just Glucerna on L tray. MONITOR / EVAL: PO, wt, labs, BM, POC, nutritional status. Follow per moderate nutrition risk guidelines.
[2017-01-21] MEDS ORDERED: Albuterol 2.5 mg/3 mL Inhalation Solution NEB PRN (08:58)
--- NOTE | 2017-01-21 10:03 | DRSVH ---
PROCEDURE: X-RAY KUB ([id number]) INDICATIONS: postop constipation TECHNIQUE: One view of the abdomen acquired. COMPARISON: None. FINDINGS: Surgical changes and devices: Long row of skin giuliano over the right abdomen.. Bowel: Bowel gas pattern is normal. No fecal loading seen. Soft tissues: No suspicious abdominal calcifications. Visualized solid organ contours appear normal in size. Bones: No suspicious bony lesions. IMPRESSION: Nonspecific bowel pattern postoperative. Dictated by: Aguilar Reynolds M.D. on 01/21/2017 at 10:00 Approved by: Aguilar Reynolds M.D. on 01/21/2017 at 10:01
--- NOTE | 2017-01-21 10:17 | PCM.PNSURG ---
Subjective Date of Service: Jan 21, 2017 Date of Service: Jan 21, 2017 Visit Information: Reason for Visit Acute Appendicitis Surgery/Surgery Date APPENDECTOMY 01/16 Post-Op Day # 6 s/p open appy Date of Admission: Jan 16, 2017 at 01:28 Hospital Day # Subjective: Patient notes improved ambulation, reduced pain and continued flatus and tolerating diet without n/v. Still no bm; KUB this am shows no abnl fecal collection and benign appearing abdomen. Patient denies f/c. Postop General: No Shortness of Breath, No Chest Pain Gastrointestinal: Tolerating Oral Feedings, No N/V, Passing Flatus Pain Management: PO Postop Activity: Ambulates with Assist Device Objective Objective Well appearing pleasant elderly female in NAD postop day 6 s/p open appy Vital Sign- Last 8 Hours Date Time Temp Pulse Resp B/P Pulse Ox O2 Delivery O2 Flow Rate FiO2 01/21/17 08:50 36.8 76 16 147/72 95 Nasal Cannula 2.00 01/21/17 08:15 62 01/21/17 08:00 52 01/21/17 07:56 58 16 93 Nasal Cannula 2.00 01/21/17 06:48 36.7 66 18 151/72 92 Nasal Cannula 2.00 01/21/17 05:04 60 Intake and Output- Last 8 Hour 01/21/17 Cumulative From/Thru 07:00 01/15/17 22:18 - 01/21/17 06:48 Intake Total 400 ml 30191 ml Output Total 600 ml 9257 ml Balance -200 ml 4950 ml Intake Oral 400 ml 7990 ml IV Total 6217 ml Output Urine Total 600 ml 9252 ml Estimated Blood Loss 5 ml # Bowel Movements 0 0 General: Alert, Cooperative, No Acute Distress Lungs: Clear to Auscultation Heart: Regular Rate/Rhythm Abdomen: Soft, Appropriately tender, Non-distended, Normoactive bowel tones SURGICAL WOUND : Wound Location/Description paramedian right sided abdominal incision Wound General Appearence: Giuliano, Intact, Well Approximated, Incision Healing, No Erythema, No Discharge, No Inflammatory Changes Dressing & Drainage Status: Intact, Dressing Removed Result Diagram: 01/20/17 0509 01/18/17 0503 Diagnostics: PROCEDURE: X-RAY KUB ([id number]) INDICATIONS: postop constipation FINDINGS: Surgical changes and devices: Long row of skin giuliano over the right abdomen.. Bowel: Bowel gas pattern is normal. No fecal loading seen. Soft tissues: No suspicious abdominal calcifications. Visualized solid organ contours appear normal in size. Assessment & Plan Impression satisfactory postop course with slow return of bowel function s/p open appy Afebrile, no sign of infection. Problems: (1) Constipation Status: Acute ICD Code: K59.00 (2) Acute appendicitis Qualifiers: Acute appendicitis type: unspecified acute appendicitis type Qualified Code : K35.80 - Unspecified acute appendicitis Status: Acute ICD Code: K35.80 (3) WPW (Mndna-Lyqofcwij-Bgvws syndrome) Onset Date: 07/08/2015 Status: Acute ICD Code: I45.6 Plan ADAT suppository Ambulate Add home micardis to meds binder for ambulation, o/w leave abdomen exposed and use pillow/blanket for comfort prn giuliano out in about a week-->~14d post op remain in hospital until BM Pain Management: naprosyn percocet VTE Prophylaxis: SCDs Resuscitation Status: CPR: Attempt Resuscitation Jose Antoino Shields PA-C Jan 21, 2017 10:17
--- NOTE | 2017-01-21 13:56 | PCM.DIMED ---
Discharge Instructions Date of Service Jan 21, 2017 Dates of Hospitalization Jan 16, 2017 at 01:28 Discharge Diagnosis Discharge Diagnosis Acute appendicitis Diet Discharge Diet: No restrictions Activity Discharge Activity: No restrictions Call your provider Call your provider for: Excessive diarrhea Patient Instructions Follow-up Provider: Win Gaffney MD Follow-up with PCP in: Other (around January 31 for giuliano out) Provider: Wilver Whelan MD Follow-up in: Other (when necessary call for appointment as needed) Gianluca Carmona MD Jan 21, 2017 13:56
--- NOTE | 2017-01-21 14:19 | NUR ---
Social Work: Readiness for Discharge D: EMR reviewed. Pt is on day 5 of hospitalization. Per MD in AM multi-disciplinary rounds, pt is likely to discharge tomorrow pending bowel movement. RN reports that pt has had gas but has not had a bowel movement. RN will administer suppository. Pt confirmed that her family would be transporting home at discharge via POV. Pt's son Uriel will be staying with her and her until Tuesday, then her daughter in law Quita will stay an additional week if necessary after Tuesday. SW does not anticipate any discharge needs at this time but will continue to follow if needs arise. A: Pt who is independent at baseline and who has excellent family support. P: Pt likely to discharge tomorrow. Pt's son Uriel will be staying with her and her until Tuesday, then her daughter in law Quita will stay an additional week if necessary after Tuesday. ROBBIE does not anticipate any discharge needs at this time but will continue to follow if needs arise. LOIS Fallon
--- NOTE | 2017-01-21 16:13 | NUR ---
Social Work: Discharge D: EMR reviewed. Pt is on day 11 of hospitalization. Per MD in AM multi-disciplinary rounds, pt is to discharge today pending bowel movement. Pt had bowel movement and MD has entered discharge order. Pt confirmed that her family would be transporting home at discharge via POV. Pt's son Uriel will be staying with her and her until Tuesday, then her daughter in law Quita will stay an additional week if necessary after Tuesday. SW does not anticipate any discharge needs at this time but will continue to follow if needs arise. Pt confirmed she has a FWW at home. SW provided Senior Resource Guide and Assisted Living information as per pt's request. A: Pt who is independent at baseline and who has excellent family support. P: Pt to discharge today. Pt's son Uriel will be staying with her and her until Tuesday, then her daughter in law Quita will stay an additional week if necessary after Tuesday. SW does not anticipate any discharge needs at this time but will continue to follow if needs arise. LOIS Fallon
--- NOTE | 2017-01-21 16:50 | NUR ---
Discharge Patient discharged. PHOTOFINISHING LABORATORY WORKER accompanied patient out with daughter. All discharge instructions given to patient and questions answered. Denied any further questions and verbalized understanding with all information. IV DC'd, intact.
--- NOTE | 2017-01-21 17:31 | PCM.DC.MED ---
Discharge Summary Date of Service Jan 21, 2017 Dates of Hospitalization Date of Hospital Admission Jan 16, 2017 at 01:28 Date of Discharge: Jan 21, 2017 Providers: Admitting Physician: Shai Aburto MD Primary Care Physician: Wilver Whelan MD Attending Physician: Shai Aburto MD Diagnosis at Time of Discharge Diagnosis at Time of Discharge Acute appendicitis Consultations Surgery Dr Colin Gaffney Procedures XRay, CTs & MRIs CT ABDOMEN AND PELVIS WITH CONTRAST: Ruddy Melendez M.D. on 01/16/2017 at 9:23 Acute appendicitis. No free air or appendicolith seen. No abscess identified. Midline ventral bowel containing hernia without current evidence of bowel obstruction. Nonspecific, multiple hepatic hypodense lesions as detailed above. Concordant with preliminary interpretation Dictated by: Ruddy Melendez M.D. on 01/16/2017 at 9:23 ECG 12 Lead Rate 91, QTC 450 from 01/15 concurrently reviewed by Kristine 01/21 * Poor quality data, interpretation may be affected . Sinus rhythm . Probable left atrial enlargement . Low voltage, precordial leads . When compared with ECG of 08-Jul-2015 11:36:01, * No significant change Invasive Procedures 01/16/2017 SURGEON: Win Gaffney MD GOLF INSTRUCTOR: Kristofer Elena PA-C ANESTHESIA: General. PREOPERATIVE DIAGNOSIS(ES): Acute appendicitis. POSTOPERATIVE DIAGNOSIS(ES): Acute appendicitis. PROCEDURE: Open appendectomy. INDICATION FOR PROCEDURE: The patient is a 76-year-old female with diabetes and COPD who was found on CT scan to have acute appendicitis. PRINCIPAL FINDING: Definite acute appendicitis, nonperforated. Successful open appendectomy via a right paramedian incision. Other Diagnostics DATE OF SURGERY: 01/16/2017 SURGEON: Win Gaffney MD GOLF INSTRUCTOR: Kristofer Elena PA-C ANESTHESIA: General. PREOPERATIVE DIAGNOSIS(ES): Acute appendicitis. POSTOPERATIVE DIAGNOSIS(ES): Acute appendicitis. PROCEDURE: Open appendectomy. INDICATION FOR PROCEDURE: The patient is a 76-year-old female with diabetes and COPD who was found on CT scan to have acute appendicitis. PRINCIPAL FINDING: Definite acute appendicitis, nonperforated. Successful open appendectomy via a right paramedian incision. 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 She describes a sensation of gas in her lower abdomen and feels bloated , She reports the pain as 8/10, diffuse abdominal pain but more prominent in the Right lower quadrant. She reports the pain would start in her upper abdomen and squeeze towards her right lower quadrant and wrap around the back and was a "bloating fullness type pain" in character. She reports that nothing alleviates her pain aside from pain medication and nothing particularly aggravates it. She reports increased nausea, belching, and decreased appetite associated with the onset of abdominal pain around 4 or 5 pm last evening. She reports multiple large bowel movements throughout the day. She denies fever, vomiting, chest pain, shortness of breath, syncope, dysuria, constipation diarrhea. Upon arrival to the emergency department patient's vitals are as follows; Temperature 37.1C, pulse 96, respiratory rate 24, blood pressure 157/82, pulse ox 93% on room air. Significant Laboratory studies include white count of 16.9 with a neutrophil percentage of 87. CRP of 1.7, lipase 17. Normal liver studies, normal metabolic panel, hemoglobin of 14.4. Imaging studies include CT abdomen, currently not uploaded in the computer however reviewed in the emergency department showed changes associated with likely acute appendicitis. Urine analysis shows trace leukocyte esterase, 6-10 white blood cells, 3-10 red blood cells, few epithelial cells and a few bacteria. 40 ketones. Urine culture pending. In the emergency department patient received cefotetan and Dilaudid. Hospital Course 76-year-old female with abdominal pain S/P appendectomy 01/16 01/17 not passing gas or taking food real well management per surgery. 01/18 patient feeling better but still awaiting bowel recovery. Starting H2 RA for stomach prophylaxis and lactobacillus 01/19, passing gas to no BM still on clears to changes 01/20 labs reviewed no changes, still no BM but passing gas surgery advancing diet. Continues to be medically stable. 01/21 patient moved her bowels was discharged no medication changes. # appendicitis, s/p appy Gulshan 01/16 on cefotetan stopped 01/18 # COPD, present admission. Active.Patient never told she has PIERRE, nocturnal oximetry 01/18 can figure out how to ordered 01/19 - On home O2 at night 2 L nasal cannula. - Duo nebs every 6 hours scheduled. - Albuterol when necessary for shortness of breath. 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 - Remote telemetry ordered. #Chronic hypertension, present on admission. Stable. - Patient reports this is mostly associated with anxiety. - Plan to continue home telmisartan following surgery. Note this is patient's home medication and is not available at the hospital. - Acetaminophen for mild pain when necessary. Bowel regimen Senna and MiraLAX scheduled and PRN. Zofran when necessary for nausea and vomiting. SubQ heparin held for now. SCDs in place. High-risk medications: IV Dilaudid. Social: Of note patient's is suffering from dementia and seems to be a focal point of her life. 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 They currently reside in [place] at a [place] home together. They have good family support no current pets. Disposition: Full code from home to return home when bowels recover. Exam Vital Signs (Last) Date Time Temp Pulse Resp B/P Pulse Ox O2 Delivery O2 Flow Rate FiO2 01/21/17 14:47 85 01/21/17 14:46 16 94 Room Air 01/21/17 12:24 36.7 155/74 2.00 Exam Gen.- A+ O 3 no apparent distress. Morbidly obese female lying in bed Eyes- open conjunctiva clear, pupils equal nonicteric Mouth-lips normal ENT- ears normal, nose normal, hearing intact Neck- supple/trach midline CVS-normal rate Lungs-no respiratory distress, normal rate no accessory muscle usage GI-generous, in binder Musc- moving 4 no obvious deformity Neuro- cranial nerves II through XII intact to gross examination, nonfocal Skin- warm and dry, no rashes/lesions/wounds noted Psych- pleasant and appropriate, Test 01/15/17 21:55 01/15/17 22:53 01/15/17 22:55 01/16/17 00:00 C-Reactive Protein 1.7mg/dL (0.0-0.5) Urine Color Yellow (YELLOW) Urine Appearance Hazy (CLEAR,HAZY) Urine pH 6.0 (5.0-8.0) Urine Specific Henley 1.025 (1.003-1.035) Urine Protein Negativemg/dL (NEG,TRACE) Urine Glucose (UA) Negativemg/dL (NEGATIVE) Urine Ketones 40mg/dL (NEGATIVE) Urine Occult Blood Moderate (NEGATIVE) Urine Nitrite Negative (NEGATIVE) Urine Bilirubin Negative (NEGATIVE) Urine Urobilinogen Normalmg/dL (NORMAL) Urine Leukocyte Esterase Trace (NEGATIVE) Urine RBC 3-10/hpf (0-2) Urine WBC 6-10/hpf (0-5) Urine Epithelial Cells Few/hpf (NONE-MOD) Urine Crystals None seen (NONE SEEN) Urine Bacteria Few/hpf (NONE-FEW) Urine Hyaline Casts None/lpf (NONE) Urine Granular Casts None seen (NONE SEEN) Urine Waxy Casts None seen (NONE SEEN) Urine Red Blood Cell Casts None seen (NONE SEEN) Urine White Blood Cell Casts None seen (NONE SEEN) Urine Mucus Present (None Seen) Urine Trichomonas None seen (NONE SEEN) Urine Yeast None (NONE SEEN) Urinalysis Comment None Urine Culture Reflexed Indicated Hold Urine Received (Received) Hold Purple Top Tube Received (Received) Prothrombin Time 10.5sec (8.1-12.5) Prothromb Time International Ratio 0.98ratio Hold Blue Top Tube Received (Received) Lipase 17U/L (13-60) Hold Red Top Tube Received (Received) Hold [place] Top Tube Received (Received) Hold Raza Top Tube Received (Received) Hemoglobin A1c 6.2% (4.8-5.6) Test 01/17/17 05:15 01/18/17 05:09 01/20/17 05:03 Magnesium Level 2.4mg/dL (1.6-2.6) Sodium Level 141mEq/L (134-144) Potassium Level 4.5mEq/L (3.5-5.2) Chloride Level 106mEq/L (97-108) Carbon Dioxide Level 28mmol/L (18-29) Blood Urea Nitrogen 11mg/dL (8-27) Creatinine 0.80mg/dL (0.57-1.00) Estimat Glomerular Filtration Rate 100mL/min (>59) Glucose Level 147mg/dL (60-99) Calcium Level 7.9mg/dL (8.5-10.1) Total Bilirubin 0.2mg/dL (0.0-1.2) Aspartate Amino Transf (AST/SGOT) 25U/L (0-50) Alanine Aminotransferase (ALT/SGPT) 13U/L (0-32) Alkaline Phosphatase 54U/L (25-165) Total Protein 5.4g/dL (6.4-8.4) Albumin 3.2g/dL (3.4-5.0) White Blood Count 6.0th/mm3 (3.8-10.1) Red Blood Count 3.69mil/mm3 (3.90-5.20) Hemoglobin 10.3g/dL (12.0-15.6) Hematocrit 32.6% (35.0-46.0) Mean Corpuscular Volume 88.3fL (81-100) Mean Corpuscular Hemoglobin 27.9pg (27.0-35.0) Mean Corpuscular Hemoglobin Concent 31.6% (32.0-37.0) Red Cell Distribution Width 14.6% (12.3-15.4) Platelet Count 192bil/L (150-400) Neutrophils (%) (Auto) 43.0% (40-74) Lymphocytes (%) (Auto) 42.9% (14-46) Monocytes (%) (Auto) 7.1% (4-12) Eosinophils (%) (Auto) 6.1% (0-5) Basophils (%) (Auto) 0.7% (0-3) Microbiology Results Blood culture 01/15 negative today, a urine urogenital rosa Discharge Medications Discharge Medications Aspirin (Aspirin) 81 Mg Tablet 81 MG PO At dinner (Reported) Calcium Carbonate/Vitamin D3 (Calcium 500 + Vit D 200 Tablet) 1 Each Tablet 1 EACH PO BID (Reported) Cholecalciferol (Vitamin D3) (Vitamin D3) 400 Unit Tablet 800 UNIT PO DAILY ( Reported) Guaifenesin (Guaifenesin) 400 Mg Tablet 400 MG PO BID (Reported) Ipratropium/Albuterol Sulfate (Iprat-Albut 0.5-3(2.5) mg/3 mL Inhalant Soln) 3 Ml Ampul.neb 3 ML IH Q6 (Reported) Loratadine (Claritin) 10 Mg Capsule 10 MG PO DAILY (Reported) Multivitamin (Multivitamins) 1 Each Capsule 1 EACH PO DAILY (Reported) Naproxen Sodium (Aleve) 220 Mg Capsule 220 MG PO BID (Reported) Soy Isofla/Blk Cohosh/Mag Bark (Estroven 155 mg Capsule) 155 Mg Capsule 155 MG PO HS (Reported) Telmisartan (Micardis) 20 Mg Tablet 20 MG PO DAILY (Reported) As needed Albuterol Sulfate (Proair Respiclick) 90 Mcg Aer.pow.ba 2 PUFFS IH q4 hours PRN PRN For Shortness of Breath (Reported) Polyethylene Glycol 3350 (Miralax) 17 Gm Powd.pack 17 GM PO DAILY PRN PRN For Constipation (Reported) Followup Plan Disposition: To home Discharge Diet: No restrictions Discharge Activity: No restrictions, Home Health Phyical Therapy Follow-up Provider: Win Gaffney MD Follow-up with PCP in: Other (around January 31 for giuliano out) Provider: Wilver Whelan MD Follow-up in: Other (when necessary call for appointment as needed) Time spent Less than 30 minutes copies to: Wilver Whelan MD, Andris E MD Jan 21, 2017 17:30
[2017-01-21] MEDS ORDERED: OXYC1TAB24 PO (17:45)
[2017-01-21] MEDS ORDERED: guaiFENesin 20 mg/mL 10 mL Syrup PO SCH (20:30)
[2017-01-21] MEDS ORDERED: BLK COHOSH PO SCH (21:00)
[2017-01-21] MEDS ORDERED: MAG BARK PO SCH (21:00)
[2017-01-21] MEDS ORDERED: SOY ISOFLA PO SCH (21:00)
[2017-01-21] MEDS ORDERED: [UNRECOGNIZED DRUG - OTHER] PO SCH (21:00)
[2017-01-22] MEDS ORDERED: TELMISARTAN 20 MG PO SCH (08:30)
== END 2017-01-21 16:50 | disposition home or self-care (01) | DRG 343 ==
LOC: SED 21:48 → MPC 01-16 01:28 → OBSVTOIN 01-16 01:28 → OSC 01-16 11:13 → UNDODISIN 01-16 14:30
PROVIDERS: ADMIT Hospitalist; ATTEND Hospitalist
PROC: 0DTJ0ZZ Resection of Appendix, Open Approach (ICD-10-PCS; principal; 2017-01-16 11:00)
DX: K35.80 Unspecified acute appendicitis (principal); I45.6 Pre-excitation syndrome; I10 Essential (primary) hypertension; Z79.82 Long term (current) use of aspirin; Z87.891 Personal history of nicotine dependence; J44.9 Chronic obstructive pulmonary disease, unspecified; E11.9 Type 2 diabetes mellitus without complications; E66.9 Obesity, unspecified; Z68.35 Body mass index [BMI] 35.0-35.9, adult; K59.00 Constipation, unspecified